=== PATIENT | female | born 1985 | race Caucasian/White ===

== ENCOUNTER → 2016-04-19 | Outpatient (CLI) | payer BC | LOC: OD 15:24 | PROVIDERS: ATTEND Obstetrics & Gynecology | DX: J06.9 Acute upper respiratory infection, unspecified (principal) | CPT/HCPCS: 87070; 87804; 87880 ==

== ENCOUNTER 2016-07-22 16:15 | Emergency (ER) | payer BC, MEDICAID ==
--- NOTE | 2016-07-23 17:49 | EKG REPORT ---
SEVERITY:- NORMAL ECG - SINUS RHYTHM : Confirmed by: Enedina Worley MD 23-Jul-2016 17:49:33
== END 2016-07-22 17:55 | disposition left against medical advice (07) ==
LOC: ER 16:15
DX: Z53.9 Procedure and treatment not carried out, unspecified reason (principal)
CPT/HCPCS: 93005; 93010

== ENCOUNTER 2016-07-24 18:09 | Outpatient (CLI) | payer BC, MEDICAID ==
[2016-07-24 19:23] LABS: APPEARANCE,URINE CLEAR; BILIRUBIN,URINE NEGATIVE (NEGATIVE); GLUCOSE, URINE NEGATIVE (NEGATIVE); KETONES,URINE NEGATIVE (NEGATIVE); LEUKOCYTE ESTERASE,URINE NEGATIVE (NEGATIVE); NITRITE,URINE NEGATIVE (NEGATIVE); PROTEIN,URINE NEGATIVE (NEGATIVE); URINE SPECIFIC GRAVITY 1.002; UROBILINOGEN,URINE NEGATIVE mg/dL (<2.0)
[2016-07-24 19:37] LABS: URINE BARBITURATES SCREEN NEGATIVE; URINE METHADONE SCREEN NEGATIVE; URINE OPIATES LOW NEGATIVE; URINE PHENCYCLIDINE SCREEN NEGATIVE
== END 2016-07-24 19:51 | disposition home or self-care (01) ==
LOC: LC 18:09
PROVIDERS: ATTEND Obstetrics & Gynecology
PROC: 4A1HXCZ Monitoring of Products of Conception, Cardiac Rate, External Approach (ICD-10-PCS; principal; 2016-07-24)
DX: O26.892 Other specified pregnancy related conditions, second trimester (principal); R10.9 Unspecified abdominal pain; Z3A.25 25 weeks gestation of pregnancy
CPT/HCPCS: 80307; 81001

== ENCOUNTER 2016-09-25 13:05 | Outpatient (CLI) | payer BC, MEDICAID ==
--- NOTE | 2016-09-25 14:16 | Non Stress Test Report ---
Non Stress Test Datetime Report Generated by CPN: 09/25/2016 14:16 DEMOGRAPHIC EGA NST: 34.2 INDICATION Indication for Study: Ordered by Provider MONITORING Monitor Explained: Monitor Explained; Test Explained; Patient Verbalized Understanding Time on Monitor: 09/25/2016 13:32 Time off Monitor: 09/25/2016 13:54 NST Duration: 22 NST INTERVENTIONS NST Interventions: PO Hydration; Reposition Patient Physician Notified NST: Dr. Chino BABY A: [id number] BABY A Movement : Present Contraction Frequency : 0 FHR Baseline : 135 Accelerations : 15X15 Decelerations : None Variability : Moderate 6-25bpm NST Review: Meets Criteria for Reactive NST NST Review and Verified By : Jose Pisano RN NST Results: Reactive NST REPORT Report Trigger: Send Report
[2016-09-25 14:53] LABS: APPEARANCE,URINE CLEAR; BILIRUBIN,URINE NEGATIVE (NEGATIVE); GLUCOSE, URINE NEGATIVE (NEGATIVE); KETONES,URINE NEGATIVE (NEGATIVE); LEUKOCYTE ESTERASE,URINE NEGATIVE (NEGATIVE); NITRITE,URINE NEGATIVE (NEGATIVE); PROTEIN,URINE NEGATIVE (NEGATIVE); URINE SPECIFIC GRAVITY 1.002; UROBILINOGEN,URINE NEGATIVE mg/dL (<2.0)
[2016-09-25 15:07] LABS: URINE BARBITURATES SCREEN NEGATIVE; URINE METHADONE SCREEN NEGATIVE; URINE OPIATES LOW NEGATIVE; URINE PHENCYCLIDINE SCREEN NEGATIVE
== END 2016-09-25 14:48 | disposition home or self-care (01) ==
LOC: LC 13:05
PROVIDERS: ATTEND Obstetrics & Gynecology
PROC: 4A1HXCZ Monitoring of Products of Conception, Cardiac Rate, External Approach (ICD-10-PCS; principal; 2016-09-25)
DX: Z34.93 Encounter for supervision of normal pregnancy, unspecified, third trimester (principal); Z36 Encounter for antenatal screening of mother; Z3A.34 34 weeks gestation of pregnancy
CPT/HCPCS: 59025; 80307; 81001

== ENCOUNTER 2016-10-06 10:01 | Emergency (ER) | payer BC, MEDICAID ==
[2016-10-06 11:12] LABS: ABSOLUTE EOSINOPHILS # (AUTO) 0.1 10^3/uL (0.0-0.6); ABSOLUTE LYMPHOCYTES (AUTO) 1.3 10^3/uL (0.5-4.7); ABSOLUTE MONOCYTES (AUTO) 0.5 10^3/uL (0.1-1.4); ABSOLUTE NEUT (AUTO) 5.2 10^3/uL (1.7-8.2); BASOPHILS % (AUTO) 0.3 % (0-2); EOSINOPHILS % (AUTO) 1.5 % (0-6); HEMATOCRIT 38.6 % (36.0-47.0); HEMOGLOBIN 13.8 g/dL (12.0-15.5); HGB HCT DIFFERENCE 2.8; LYMPHOCYTES % (AUTO) 18.4 % (13-45); MEAN CORPUSCULAR HEMOGLOBIN 32.3 pg (27.0-33.4); MEAN CORPUSCULAR HGB CONC 35.8 g/dL (32.0-36.0); MEAN CORPUSCULAR VOLUME 90 fl (80-97); MONOCYTES % (AUTO) 6.5 % (3-13); RED BLOOD COUNT 4.27 10^6/uL (3.72-5.28); RED CELL DISTRIBUTION WIDTH 13.1 % (11.5-14.0); SEGMENTED NEUTROPHILS % (AUTO) 73.3 % (42-78); WHITE BLOOD COUNT 7.1 10^3/uL (4.0-10.5)
[2016-10-06 11:14] LABS: AMORPHOUS SEDIMENT,URINE TRACE /HPF; APPEARANCE,URINE CLOUDY; BILIRUBIN,URINE NEGATIVE (NEGATIVE); GLUCOSE, URINE NEGATIVE (NEGATIVE); KETONES,URINE NEGATIVE (NEGATIVE); LEUKOCYTE ESTERASE,URINE LARGE (NEGATIVE); NITRITE,URINE NEGATIVE (NEGATIVE); PROTEIN,URINE NEGATIVE (NEGATIVE); URINE SPECIFIC GRAVITY 1.002; UROBILINOGEN,URINE NEGATIVE mg/dL (<2.0)
[2016-10-06 11:30] LABS: ALANINE AMINOTRANSFERASE 26 U/L (9-52); ALBUMIN 3.5 g/dL (3.5-5.0); ALKALINE PHOSPHATASE 139 U/L (38-126); ANION GAP 9 (5-19); ASPARTATE AMINO TRANSFERASE 24 U/L (14-36); BILIRUBIN,DIRECT 0.3 mg/dL (0.0-0.4); BILIRUBIN,TOTAL 0.4 mg/dL (0.2-1.3); BLOOD UREA NITROGEN 6 mg/dL (7-20); CALCIUM 9.5 mg/dL (8.4-10.2); CARBON DIOXIDE 21 mmol/L (22-30); CHLORIDE 107 mmol/L (98-107); CREATININE RESULT 0.59 mg/dL (0.52-1.25); GLUCOSE 81 mg/dL (75-110); POTASSIUM 4.1 mmol/L (3.6-5.0); SODIUM 137.4 mmol/L (137-145); TOTAL PROTEIN 6.2 g/dL (6.3-8.2)
--- NOTE | 2016-10-06 11:42 | ER Document Report ---
ED General - General Chief Complaint: Near Syncope Stated Complaint: POSSIBLE SYNCOPE Time Seen by Provider: 10/06/16 10:18 Mode of Arrival: Medic Information source: Patient Notes: 30-year-old female with a history of seizures/pseudoseizures, vasovagal syncope , 35 weeks . Patient brought in by EMS after a syncopal episode at home. Patient was texting with her mother at the time and stated to her mother that she "did not feel well". Patient states she passed out afterwards and this is typical of her "seizures". Patient has been on Lamictal for these in the past and is followed by Dr. Scherer but was taken off that medicine for the . Patient states this is her third seizure during the itself. Patient states she fell on her left side. She is concerned that she wants to the baby checked. She denies any fluid leakage or vaginal bleeding. She denies any abdominal pain at this time. She states she feels fine now. There is no postictal period. TRAVEL OUTSIDE OF THE [place] IN LAST 30 DAYS: No - HPI Onset: Just prior to arrival Onset/Duration: Gradual Quality of pain: Cramping Severity: Mild Pain Level: 1 Associated symptoms: denies: Chest pain, Fever, Shortness of breath Exacerbated by: Denies Relieved by: Denies Similar symptoms previously: Yes Recently seen / treated by doctor: Yes - Related Data Allergies/Adverse Reactions: astemizole [From Hismanal] Allergy (Verified 10/06/16 11:04) chlorpheniramine [From Naldecon] Allergy (Verified 10/06/16 11:04) phenylephrine HCl [From Naldecon] Allergy (Verified 10/06/16 11:04) phenylpropanolamine HCl [From Naldecon] Allergy (Verified 10/06/16 11:04) phenyltoloxamine [From Naldecon] Allergy (Verified 10/06/16 11:04) Home Medications: Current Home Medications Folic Acid 1 mg PO DAILY 10/06/16 [History] Past Medical History - General Information source: Patient - Social History Smoking Status: Never Smoker Cigarette use (# per day): No Chew tobacco use (# tins/day): No Frequency of alcohol use: None Drug Abuse: None Lives with: Family Family History: Reviewed & Not Pertinent, Other - abdominal and intracranial aneurysms. Patient has suicidal ideation: No Patient has homicidal ideation: No - Past Medical History Cardiac Medical History: Reports: Other - vaso-vagal Pulmonary Medical History: Reports: None EENT Medical History: Reports: None Neurological Medical History: Reports: Hx Migraine, Hx Seizures - Pseudoseizures Endocrine Medical History: Reports: None Renal/ Medical History: Reports: None. Denies: Hx Peritoneal Dialysis Malignancy Medical History: Reports: None GI Medical History: Reports: None Musculoskeltal Medical History: Reports None Skin Medical History: Reports None Psychiatric Medical History: Reports: Hx Depression Past Surgical History: Reports: Hx Cholecystectomy, Hx Oral Surgery, Hx Tonsillectomy - Immunizations Immunizations up to date: Yes Hx Diphtheria, Pertussis, Tetanus Vaccination: Yes Review of Systems - Review of Systems Constitutional: denies: Chills, Fever EENT: No symptoms reported Cardiovascular: No symptoms reported Respiratory: No symptoms reported Gastrointestinal: No symptoms reported Genitourinary: No symptoms reported Female Genitourinary: No symptoms reported Musculoskeletal: No symptoms reported Skin: No symptoms reported Hematologic/Lymphatic: No symptoms reported Neurological/Psychological: See HPI Physical Exam - Vital signs Vitals: Temp Pulse Resp BP Pulse Ox 97.6 F 95 18 135/98 H 97 10/06/16 10:05 10/06/16 10:05 10/06/16 10:05 10/06/16 10:05 10/06/16 10:05 Notes: Physical exam: GENERAL: 30-year-old female, alert and oriented 3, no acute distress. The patient's blood pressure is 135/98. (She denies any problems with her blood pressure in ). HEAD: Atraumatic, normocephalic. EYES: Pupils equal round and reactive to light, extraocular movements intact, sclera anicteric, conjunctiva are normal. ENT: TMs normal, nares patent, oropharynx clear without exudates. Moist mucous membranes. NECK: Normal range of motion, supple without lymphadenopathy or JVD. LUNGS: Breath sounds clear to auscultation bilaterally and equal. No wheezes rales or rhonchi. HEART: Regular rate and rhythm without murmurs, rubs or gallops. ABDOMEN: Consistent with 35 weeks , soft, normoactive bowel sounds. No tenderness to palpation. No guarding, no rebound. No masses appreciated. EXTREMITIES: Normal range of motion, no pitting or edema. No clubbing or cyanosis. NEUROLOGICAL: Cranial nerves II through XII grossly intact. Normal speech, normal gait. PSYCH: Normal mood, normal affect. SKIN: Warm, Dry, normal turgor, no rashes or lesions noted. Bedside ultrasound: Consistent with 35 weeks , heartbeat 133, no fluid in the hepatorenal recess or the splenorenal recess. Course - Re-evaluation Re-evalutation: 10/06/16 12:09 Note: Repeat blood pressure 121/83. Patient is doing fine. She has been having some contractions which have been regular. From a medical standpoint, the patient is stable for evaluation in labor and delivery. She did fall and states she hit her side so there should be some evaluation and monitoring. 10/06/16 12:14 The issues as follows: 1. Syncope/seizure: Patient did not have any postictal period. There has been no tongue biting or urinary incontinence. Her neurologic exam is intact. She does have a history of seizures/pseudoseizures and vasovagal episodes. Her EKG was normal and her electrolytes good. She is stable for follow-up. 2. blood pressure: Patient's initial blood pressure was 135/98. Repeat was 128 /81 but the diastolic has over the couple of times around 98. Patient has not complained of any headache, abdominal pain. She does not have any lower extremity edema and the urine does not show any protein. 3. Urine analysis: Did show some white cells and bacteria, but there is a significant amount of squamous epithelial cells. I will send a urine culture. Patient has not had any symptoms of a UTI. 4. heart tones 133. Patient being sent up to labor and delivery for monitoring. I discussed my findings, urine analysis, blood pressure with Dr. Hernandez who will follow-up with the patient in labor and delivery. 10/06/16 20:55 - Vital Signs Vital signs: Temp Pulse Resp BP Pulse Ox 98.1 F 95 18 123/86 H 99 10/06/16 12:16 10/06/16 10:05 10/06/16 12:01 10/06/16 12:16 10/06/16 12:01 - Laboratory Result Diagrams: 10/06/16 11:01 10/06/16 11:01 Laboratory results interpreted by me: 10/06/16 10/06/16 10:30 11:01 Carbon Dioxide 21 L BUN 6 L Alkaline Phosphatase 139 H Total Protein 6.2 L Beta HCG, Quant 4643.10 H Ur Leukocyte Esterase LARGE H - EKG Interpretation by Me Rate: Normal Rhythm: NSR - EKG shows normal sinus rhythm with a ventricular rate of 83, no acute ST-T wave changes, QTC 423, other intervals normal. Discharge - Discharge Clinical Impression: Vagal syncope Condition: Stable Disposition: HOME, SELF-CARE Referrals: EDMUNDO DOWD MD [Primary Care Provider] - Follow up as needed
[2016-10-06 12:17] VITALS: BP 123/86
--- NOTE | 2016-10-06 13:05 | EKG REPORT ---
SEVERITY:- NORMAL ECG - SINUS RHYTHM : Confirmed by: Alberto Carbajal MD 06-Oct-2016 13:04:38
== END 2016-10-06 12:19 | disposition home or self-care (01) ==
LOC: ER 10:01
DX: R55 Syncope and collapse (principal); R56.9 Unspecified convulsions; Z3A.35 35 weeks gestation of pregnancy; W19.XXXA Unspecified fall, initial encounter
CPT/HCPCS: 36415; 59025; 80053; 80307; 81001; 84702; 85025; 87086; 93005; 93010; 99284

== ENCOUNTER 2016-10-06 12:14 | Outpatient (CLI) | payer BC, MEDICAID ==
[2016-10-06 13:09] LABS: APPEARANCE,URINE SLIGHTLY-CLOUDY; BILIRUBIN,URINE NEGATIVE (NEGATIVE); GLUCOSE, URINE NEGATIVE (NEGATIVE); KETONES,URINE NEGATIVE (NEGATIVE); LEUKOCYTE ESTERASE,URINE SMALL (NEGATIVE); NITRITE,URINE NEGATIVE (NEGATIVE); PROTEIN,URINE NEGATIVE (NEGATIVE); URINE SPECIFIC GRAVITY 1.001; UROBILINOGEN,URINE NEGATIVE mg/dL (<2.0)
--- NOTE | 2016-10-06 13:12 | Non Stress Test Report ---
Non Stress Test Datetime Report Generated by CPN: 10/06/2016 13:12 DEMOGRAPHIC EGA NST: 35.6 INDICATION Indication for Study (NST) Other: Fall MONITORING Monitor Explained: Monitor Explained; Test Explained; Patient Verbalized Understanding Time on Monitor: 10/06/2016 12:39 NST INTERVENTIONS NST Interventions: None BABY A: [id number] BABY A Movement : Present Accelerations : 15X15 Decelerations : None Variability : Moderate 6-25bpm NST Review: Meets Criteria for Reactive NST NST Review and Verified By : D Bellavance RNC NST Results: Reactive NST REPORT Report Trigger: Send Report
[2016-10-06 13:29] LABS: URINE BARBITURATES SCREEN NEGATIVE; URINE METHADONE SCREEN NEGATIVE; URINE OPIATES LOW NEGATIVE; URINE PHENCYCLIDINE SCREEN NEGATIVE
== END 2016-10-06 16:18 | disposition home or self-care (01) ==
LOC: LC 12:14
PROVIDERS: ATTEND Obstetrics & Gynecology
PROC: 4A1HXCZ Monitoring of Products of Conception, Cardiac Rate, External Approach (ICD-10-PCS; principal; 2016-10-06)
DX: O47.03 False labor before 37 completed weeks of gestation, third trimester (principal); Z3A.35 35 weeks gestation of pregnancy; W19.XXXA Unspecified fall, initial encounter
CPT/HCPCS: 59025; 80307; 81001

== ENCOUNTER 2016-10-15 15:48 | Outpatient (CLI) | payer BC, MEDICAID ==
[2016-10-15 16:37] LABS: APPEARANCE,URINE CLEAR; BILIRUBIN,URINE NEGATIVE (NEGATIVE); GLUCOSE, URINE NEGATIVE (NEGATIVE); KETONES,URINE NEGATIVE (NEGATIVE); LEUKOCYTE ESTERASE,URINE NEGATIVE (NEGATIVE); NITRITE,URINE NEGATIVE (NEGATIVE); PROTEIN,URINE NEGATIVE (NEGATIVE); URINE SPECIFIC GRAVITY 1.003; UROBILINOGEN,URINE NEGATIVE mg/dL (<2.0)
--- NOTE | 2016-10-15 17:05 | Non Stress Test Report ---
Non Stress Test Datetime Report Generated by CPN: 10/15/2016 17:05 DEMOGRAPHIC EGA NST: 37.1 INDICATION Indication for Study: Other Indication for Study (NST) Other: labor check MONITORING Monitor Explained: Monitor Explained; Test Explained; Patient Verbalized Understanding Time on Monitor: 10/15/2016 16:15 Time off Monitor: 10/15/2016 17:03 NST Duration: 48 NST INTERVENTIONS NST Interventions: None Physician Notified NST: Dr. Chino BABY A: [id number] BABY A Movement : Present Contraction Frequency : irregular FHR Baseline : 120 Accelerations : 15X15 Decelerations : None Variability : Moderate 6-25bpm NST Review: Meets Criteria for Reactive NST NST Review and Verified By : Nathan Bryce, RN NST Results: Reactive NST REPORT Report Trigger: Send Report
[2016-10-15 17:08] LABS: URINE BARBITURATES SCREEN NEGATIVE; URINE METHADONE SCREEN NEGATIVE; URINE OPIATES LOW NEGATIVE; URINE PHENCYCLIDINE SCREEN NEGATIVE
== END 2016-10-15 17:42 | disposition home or self-care (01) ==
LOC: LC 15:48
PROVIDERS: ATTEND Obstetrics & Gynecology
DX: O47.1 False labor at or after 37 completed weeks of gestation (principal); Z3A.27 27 weeks gestation of pregnancy
CPT/HCPCS: 59025; 80307; 81005

== ENCOUNTER 2016-10-22 16:13 | Outpatient (CLI) | payer BC, MEDICAID ==
[2016-10-22 16:56] LABS: APPEARANCE,URINE SLIGHTLY-CLOUDY; BILIRUBIN,URINE NEGATIVE (NEGATIVE); GLUCOSE, URINE NEGATIVE (NEGATIVE); KETONES,URINE NEGATIVE (NEGATIVE); LEUKOCYTE ESTERASE,URINE SMALL (NEGATIVE); NITRITE,URINE NEGATIVE (NEGATIVE); PROTEIN,URINE NEGATIVE (NEGATIVE); URINE SPECIFIC GRAVITY 1.006; UROBILINOGEN,URINE NEGATIVE mg/dL (<2.0)
[2016-10-22 17:01] LABS: AMNISURE (ROM) NEGATIVE (NEGATIVE)
[2016-10-22 17:24] LABS: URINE BARBITURATES SCREEN NEGATIVE; URINE METHADONE SCREEN NEGATIVE; URINE OPIATES LOW NEGATIVE; URINE PHENCYCLIDINE SCREEN NEGATIVE
--- NOTE | 2016-10-22 17:25 | Non Stress Test Report ---
Non Stress Test Datetime Report Generated by CPN: 10/22/2016 17:25 DEMOGRAPHIC EGA NST: 38.1 INDICATION Indication for Study: Ordered by Provider Indication for Study (NST) Other: Labor Check MONITORING Monitor Explained: Monitor Explained; Test Explained; Patient Verbalized Understanding Time on Monitor: 10/22/2016 16:28 Time off Monitor: 10/22/2016 17:17 NST Duration: 49 NST INTERVENTIONS NST Interventions: PO Hydration; Reposition Patient Physician Notified NST: Dr. Chino BABY A: [id number] BABY A Movement : Present Contraction Frequency : 0 FHR Baseline : 125 Accelerations : 15X15 Variability : Moderate 6-25bpm NST Review: Meets Criteria for Reactive NST NST Review and Verified By : Tunde Reid NST Results: Reactive NST REPORT Report Trigger: Send Report (Annotations: Data stored by Milena on behalf of user)
== END 2016-10-22 17:30 | disposition home or self-care (01) ==
LOC: LC 16:13
PROVIDERS: ATTEND Obstetrics & Gynecology
PROC: 4A1HXCZ Monitoring of Products of Conception, Cardiac Rate, External Approach (ICD-10-PCS; principal; 2016-10-22)
DX: O47.1 False labor at or after 37 completed weeks of gestation (principal); Z3A.38 38 weeks gestation of pregnancy
CPT/HCPCS: 59025; 80307; 81005; 84112

== ENCOUNTER 2016-10-29 09:06 | Outpatient (CLI) | payer BC, MEDICAID ==
[2016-10-29 09:30] LABS: APPEARANCE,URINE CLOUDY; BILIRUBIN,URINE NEGATIVE (NEGATIVE); GLUCOSE, URINE 150 mg/dL (NEGATIVE); KETONES,URINE NEGATIVE (NEGATIVE); LEUKOCYTE ESTERASE,URINE MODERATE (NEGATIVE); NITRITE,URINE NEGATIVE (NEGATIVE); PROTEIN,URINE NEGATIVE (NEGATIVE); URINE SPECIFIC GRAVITY 1.002; UROBILINOGEN,URINE NEGATIVE mg/dL (<2.0)
[2016-10-29 09:45] LABS: URINE BARBITURATES SCREEN NEGATIVE; URINE METHADONE SCREEN NEGATIVE; URINE OPIATES LOW NEGATIVE; URINE PHENCYCLIDINE SCREEN NEGATIVE
[2016-10-29] MEDS ORDERED: HYDROXYZINE PAMOATE 50 MG CAPSULE PO ONE (09:49)
[2016-10-29] MEDS ORDERED: HYDROXYZINE PAMOATE 50 MG CAPSULE ONE (09:52)
== END 2016-10-29 10:18 | disposition home or self-care (01) ==
LOC: LC 09:06
PROVIDERS: ATTEND Specialist
PROC: 4A1HXCZ Monitoring of Products of Conception, Cardiac Rate, External Approach (ICD-10-PCS; principal; 2016-10-29)
DX: O47.1 False labor at or after 37 completed weeks of gestation (principal); Z3A.39 39 weeks gestation of pregnancy
CPT/HCPCS: 59025; 80307; 81005

== ENCOUNTER 2016-11-02 01:41 | Outpatient (CLI) | payer BC, MEDICAID ==
[2016-11-02 02:02] LABS: APPEARANCE,URINE CLEAR; BILIRUBIN,URINE NEGATIVE (NEGATIVE); GLUCOSE, URINE NEGATIVE (NEGATIVE); KETONES,URINE TRACE mg/dL (NEGATIVE); LEUKOCYTE ESTERASE,URINE TRACE (NEGATIVE); NITRITE,URINE NEGATIVE (NEGATIVE); PROTEIN,URINE NEGATIVE (NEGATIVE); URINE SPECIFIC GRAVITY 1.002; UROBILINOGEN,URINE NEGATIVE mg/dL (<2.0)
[2016-11-02 02:16] LABS: URINE BARBITURATES SCREEN NEGATIVE; URINE METHADONE SCREEN NEGATIVE; URINE OPIATES LOW NEGATIVE; URINE PHENCYCLIDINE SCREEN NEGATIVE
[2016-11-02] MEDS ORDERED: HYDROXYZINE PAMOATE 50 MG CAPSULE PO ONE ×2 (03:45→22:16)
[2016-11-02] MEDS ORDERED: HYDROXYZINE PAMOATE 50 MG CAPSULE ONE (03:48)
--- NOTE | 2016-11-02 03:59 | Non Stress Test Report ---
Non Stress Test Datetime Report Generated by CPN: 11/02/2016 03:59 DEMOGRAPHIC EGA NST: 39.5 EGA NST: 39.1 INDICATION Indication for Study: Ordered by Provider Indication for Study: Ordered by Provider MONITORING Monitor Explained: Monitor Explained; Test Explained; Patient Verbalized Understanding Monitor Explained: Monitor Explained; Test Explained; Patient Verbalized Understanding Time on Monitor: 11/02/2016 01:55 Time on Monitor: 10/29/2016 09:22 Time off Monitor: 11/02/2016 02:19 NST Duration: 24 NST INTERVENTIONS NST Interventions: None NST Interventions: None Physician Notified NST: Dr. Chino (Annotations: Data stored by [facility] on behalf of user) Physician Notified NST: Lisettesamy BABY A: [id number] BABY A Movement : Present Movement : Present Contraction Frequency : 2-6 FHR Baseline : 115 Accelerations : 15X15 Accelerations : 15X15 Decelerations : None Decelerations : None Variability : Moderate 6-25bpm Variability : Moderate 6-25bpm NST Review: Meets Criteria for Reactive NST NST Review: Meets Criteria for Reactive NST NST Review and Verified By : CÉSAR Ballard NST Review and Verified By : MARGARET Gregorio Results: Reactive NST Results: Reactive NST REPORT Report Trigger: Send Report
--- NOTE | 2016-11-02 22:04 | Non Stress Test Report ---
Non Stress Test Datetime Report Generated by CPN: 11/02/2016 22:04 DEMOGRAPHIC Test Number: 5 EGA NST: 39.5 INDICATION Indication for Study: Ordered by Provider MONITORING Monitor Explained: Monitor Explained; Test Explained; Patient Verbalized Understanding Time on Monitor: 11/02/2016 18:26 Time off Monitor: 11/02/2016 18:54 NST Duration: 28 NST INTERVENTIONS NST Interventions: PO Hydration; Reposition Patient Physician Notified NST: Dr. Neilsen BABY A: [id number] BABY A Movement : Present Contraction Frequency : irregular FHR Baseline : 125 Accelerations : 15X15 Decelerations : None Variability : Moderate 6-25bpm NST Review: Meets Criteria for Reactive NST NST Review and Verified By : MARGARET Dobbins Results: Reactive NST REPORT Report Trigger: Send Report
== END 2016-11-02 04:00 | disposition home or self-care (01) ==
LOC: LC 01:41
PROVIDERS: ATTEND Obstetrics & Gynecology
PROC: 4A1HXCZ Monitoring of Products of Conception, Cardiac Rate, External Approach (ICD-10-PCS; principal; 2016-11-02)
DX: O47.1 False labor at or after 37 completed weeks of gestation (principal); Z3A.39 39 weeks gestation of pregnancy
CPT/HCPCS: 59025; 80307; 81005; 82962

== ENCOUNTER 2016-11-02 18:07 | Outpatient (CLI) | payer BC, MEDICAID ==
[2016-11-02 18:55] LABS: APPEARANCE,URINE SLIGHTLY-CLOUDY; BILIRUBIN,URINE NEGATIVE (NEGATIVE); GLUCOSE, URINE NEGATIVE (NEGATIVE); KETONES,URINE 20 mg/dL (NEGATIVE); LEUKOCYTE ESTERASE,URINE SMALL (NEGATIVE); NITRITE,URINE NEGATIVE (NEGATIVE); PROTEIN,URINE NEGATIVE (NEGATIVE); URINE SPECIFIC GRAVITY 1.008; UROBILINOGEN,URINE NEGATIVE mg/dL (<2.0)
[2016-11-02 19:10] LABS: URINE BARBITURATES SCREEN NEGATIVE; URINE METHADONE SCREEN NEGATIVE; URINE OPIATES LOW NEGATIVE; URINE PHENCYCLIDINE SCREEN NEGATIVE
[2016-11-02] MEDS ORDERED: HYDROXYZINE PAMOATE 50 MG CAPSULE ONE (22:12)
== END 2016-11-02 22:18 | disposition home or self-care (01) ==
LOC: ER 18:07 → LC 22:18
PROVIDERS: ATTEND Specialist
PROC: 4A1HXCZ Monitoring of Products of Conception, Cardiac Rate, External Approach (ICD-10-PCS; principal; 2016-11-02)
DX: O47.1 False labor at or after 37 completed weeks of gestation (principal); Z3A.39 39 weeks gestation of pregnancy
CPT/HCPCS: 59025; 80307; 81005

== ENCOUNTER 2016-11-03 09:12 | Inpatient (IN) | payer BC, MEDICAID ==
[2016-11-03] MEDS ORDERED: OXYTOCIN 10 UNIT/ML VIAL ONE (09:26)
[2016-11-03] MEDS ORDERED: ZOLPIDEM TARTRATE 5 MG TABLET PO PRN (09:51)
[2016-11-03] MEDS ORDERED: BENZOCAINE/MENTHOL AEROSOL SPRAY 56 ML TOP PRN (09:51)
[2016-11-03] MEDS ORDERED: DIBUCAINE 1% OINTMENT 28 GM TP PRN (09:51)
[2016-11-03] MEDS ORDERED: MEASLES,MUMPS&RUBELLA VACC/PF 0.5 ML VIAL SUBCUT PRN (09:51)
[2016-11-03] MEDS ORDERED: DIPH/PERTUSS(ACELL)/TETANUS VAC/PF 0.5 ML SYR (>=10YO) IM PRN (09:51)
[2016-11-03] MEDS ORDERED: ACETAMINOPHEN WITH CODEINE #3 TABLET PO PRN ×2 (09:51)
[2016-11-03] MEDS ORDERED: OXYTOCIN/NORMAL SALINE 20 UNIT/1,000 ML RTUINJ IV PRN (09:51)
--- NOTE | 2016-11-03 11:20 | Delivery Summary ---
Del Sum A-C Datetime Report Generated by CPN: 11/03/2016 11:19 DELIVERY PERSONNEL DELIVERY PERSONNEL: [id number] MATERNAL INFORMATION Delivery Anesthesia: None Medications After Delivery: Pitocin 10 Units IM Meds After Delivery Comment: Pitocin 20 Units IM into R Thigh at 0920 Estimated Blood Loss (ml): 200 Maternal Complications: None Provider Comments: Home delivery, viable male infant, vagina and perineum inspected, superficial lacerations not bleeding, not repaired. Infant to nursery. Placenta inspected appears intact. IM pitocin, fundus firm @ the u. Routine pp care. ebl estimated. LABOR SUMMARY EDC: 11/04/2016 00:00 No. Babies in Womb: 1 Attempted: No Labor Anesthesia: None LABOR INFORMATION Reason for Induction: Not Applicable Onset of Labor: 11/03/2016 03:00 Oxytocin: N/A Group B Beta Strep: negative Steroids Given: None Reason Steroids Not Administered: Not Applicable STAGES OF LABOR Stage 3 hr: 0 Stage 3 min: 10 Total Time in Labor hr: 5 Total Time in Labor min: 25 VAGINAL DELIVERY Episiotomy: None Laceration Extension: N/A Laceration Type: None Laceration Repair: Not Applicable Laceration Repair Note: n/a Sponge Count Correct: N/A Sharps Count Correct: N/A BABY A INFORMATION Infant Delivery Date/Time: 11/03/2016 08:15 Method of Delivery: Vaginal Born in Route : Yes : N/A Forceps: N/A Vacuum Extraction: N/A Shoulder Dystocia : No PRESENTATION/POSITION BABY A Presentation: Cephalic Cephalic Presentation: Vertex PLACENTA INFORMATION BABY A Placenta Delivery Time : 11/03/2016 08:25 Placenta Method of Delivery: Spontaneous Placenta Status: Delivered SCORES BABY A Heart Rate 1 min: >100 bpm Resp Effort 1 min: Slow, Irregular Reflex Irritability 1 min: Cough or Sneeze or Pulls Away Muscle Tone 1 min: Active Motion Color 1 min: Blue/Pale Resuscitation Effort 1 min: Tactile Stimulation SCORE 1 MIN: 7 Heart Rate 5 min: >100 bpm Resp Effort 5 min: Good Cry Reflex Irritability 5 min: Cough or Sneeze or Pulls Away Muscle Tone 5 min: Active Motion Color 5 min: Body [place], Extremities Blue Resuscitation Effort 5 min: N/A SCORE 5 MIN: 9 Resuscitation Effort 10 min: N/A INFANT INFORMATION BABY A Gestational Age at Delivery: 39.6 Gestational Status: Full Term- 39- 40.6 Weeks Infant Outcome : Liveborn Infant Condition : Stable Infant Sex: Male IDENTIFICATION BABY A Infant Verification Date/Time: 11/03/2016 09:19 ID Band Number: [id number] Mother's Name Verified: Yes Infant RN Verifying Infant: K Ibrahima RNC/D Bellavance RNC WEIGHT/LENGTH BABY A Birthweight (gm): 2973 Infant Weight (lb): 6 Weight (oz): 9 Length (in): 21.00 Infant Length (cm): 53.34 CORD INFORMATION BABY A No. Cord Vessels: 3 Nuchal Cord : N/A Cord Blood Taken: Yes-For Eval (Mom's Blood Type - or O+) Suction: Mouth; Nose ASSESSMENT BABY A Physical Findings- Other: Circular skin lesion Left Wrist Respirations: Grunting; Intercostal Retractions; Sternal Retractions Skin to Skin: No Grade Tamper/ALS Called : Yes Care By: EMS BABY B INFORMATION : N/A SIGNATURES Assignment: Janet Disla MD Signature: with User ID: Juany : with User ID: Juany
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
[2016-11-03 11:52] LABS: ABSOLUTE LYMPHOCYTES (AUTO) 0.9 10^3/uL (0.5-4.7); ABSOLUTE MONOCYTES (AUTO) 0.9 10^3/uL (0.1-1.4); BASOPHILS % (AUTO) 0.1 % (0-2); HEMATOCRIT 40.6 % (36.0-47.0); HEMOGLOBIN 14.2 g/dL (12.0-15.5); LYMPHOCYTES % (AUTO) 5.1 % (13-45); MEAN CORPUSCULAR HEMOGLOBIN 31.8 pg (27.0-33.4); MEAN CORPUSCULAR HGB CONC 34.9 g/dL (32.0-36.0); MEAN CORPUSCULAR VOLUME 91 fl (80-97); RED BLOOD COUNT 4.46 10^6/uL (3.72-5.28); RED CELL DISTRIBUTION WIDTH 13.2 % (11.5-14.0); SEGMENTED NEUTROPHILS % (AUTO) 89.8 % (42-78); WHITE BLOOD COUNT 17.9 10^3/uL (4.0-10.5)
[2016-11-03] MEDS: FERROUS SULFATE 325 MG TABLET PO SCH ×2 (12:23→18:16)
[2016-11-03] MEDS: SENNOSIDES/DOCUSATE 8.6-50 MG 1 EACH TABLET PO SCH (12:24)
[2016-11-03] MEDS: DOCUSATE SODIUM 100 MG CAPSULE PO SCH ×2 (12:25→18:16)
[2016-11-03] MEDS: PRENATAL VITAMIN W-O CA NO5/FE FUMARATE/FA CAPSULE PO SCH (12:25)
[2016-11-03] MEDS: IBUPROFEN 800 MG TABLET PO SCH ×2 (13:44→21:18)
[2016-11-04] MEDS: IBUPROFEN 800 MG TABLET PO SCH ×3 (06:18→21:12)
[2016-11-04 08:02] LABS: HEMATOCRIT 37.4 % (36.0-47.0); HGB HCT DIFFERENCE 1.6; MEAN CORPUSCULAR HEMOGLOBIN 32.2 pg (27.0-33.4); MEAN CORPUSCULAR HGB CONC 34.8 g/dL (32.0-36.0); MEAN CORPUSCULAR VOLUME 93 fl (80-97); RED BLOOD COUNT 4.04 10^6/uL (3.72-5.28); RED CELL DISTRIBUTION WIDTH 13.6 % (11.5-14.0)
[2016-11-04] MEDS: SENNOSIDES/DOCUSATE 8.6-50 MG 1 EACH TABLET PO SCH (10:13)
[2016-11-04] MEDS: PRENATAL VITAMIN W-O CA NO5/FE FUMARATE/FA CAPSULE PO SCH (10:13)
[2016-11-04] MEDS: DOCUSATE SODIUM 100 MG CAPSULE PO SCH ×2 (10:13→18:26)
[2016-11-04] MEDS: FERROUS SULFATE 325 MG TABLET PO SCH ×2 (10:13→18:26)
--- NOTE | 2016-11-04 10:54 | PDOC PROGRESS REPORT ---
Subjective-OB Subjective: Post Delivery Day: 1 31 year old. Denies any needs at this time, lochia stable, pain well controlled , voiding without difficulty Physical Exam (OB) Vital Signs: Temp Pulse Resp BP Pulse Ox 97.7 F 88 16 127/75 H 99 11/04/16 08:09 11/04/16 08:09 11/04/16 08:09 11/04/16 08:09 11/04/16 08:09 Intake & Output 11/03/16 11/04/16 11/05/16 06:59 06:59 06:59 Intake Total 400 Balance 400 Weight 103.8 kg - PIH/Pre-Eclampsia Clonus: Negative - Lochia Lochia Amount: Scant < 10 ml Lochia Color: Rubra/Red - Abdomen Description: Tender, Soft Hernia Present: No Fundal Description: Firm, Midline Fundal Height: u/u - u/2 Objective-Diagnostic Laboratory: 11/04/16 06:59 11/03/16 11/03/16 11/04/16 11:22 11:22 06:59 WBC 17.9 H 12.0 H RBC 4.46 4.04 Hgb 14.2 13.0 Hct 40.6 37.4 MCV 91 93 MCH 31.8 32.2 MCHC 34.9 34.8 RDW 13.2 13.6 Plt Count 204 196 Seg Neutrophils % 89.8 H Lymphocytes % 5.1 L Monocytes % 5.0 Eosinophils % 0.0 Basophils % 0.1 Absolute Neutrophils 16.0 H Absolute Lymphocytes 0.9 Absolute Monocytes 0.9 Absolute Eosinophils 0.0 Absolute Basophils 0.0 Blood Type O POSITIVE Antibody Screen NEGATIVE Assessment and Plan(PN) - Assessment and Plan (1) Vaginal delivery Is this a current diagnosis for this admission?: Yes Plan: routine pp care - Time Spent with Patient Time with patient: Less than 15 minutes Critical Time spent with patient: Less than 15 minutes Medications reviewed and adjusted accordingly: Yes - Disposition Anticipated Discharge: Home Within: within 24 hours
[2016-11-05] MEDS: IBUPROFEN 800 MG TABLET PO SCH (06:07)
--- NOTE | 2016-11-05 10:14 | PDOC DISCHARGE SUMMARY ---
Final Diagnosis Discharge Date: 11/05/16 - Final Diagnosis (1) Vaginal delivery Is this a current diagnosis for this admission?: Yes (2) Hx of seizure disorder Is this a current diagnosis for this admission?: Yes (3) GDM, class A1 Is this a current diagnosis for this admission?: Yes (4) PTSD (post-traumatic stress disorder) Is this a current diagnosis for this admission?: Yes Discharge Data - Discharge Medication Home Medications: Vit/Iron Fumarate/FA [ Tablet] 1 each PO DAILY 09/25/16 Folic Acid 1 mg PO DAILY 10/06/16 Docusate Sodium [Colace 100 mg Capsule] 100 mg PO BID #30 capsule 11/05/16 Ferrous Sulfate [Feosol 325 mg Tablet] 325 mg PO BID #60 tablet 11/05/16 Ibuprofen [Motrin 800 mg Tablet] 800 mg PO Q8 #60 tablet 11/05/16 Gestational Age: 39.6 Reason(s) for Admission: Gestional Diabetes, Other Admission Note: home delivery Procedures: NST Intrapartum Procedure(s): Spontaneous Vaginal Delivery - Data Baby 1 Male at 1 minute: 7 at 5 minutes: 9 Home with Mother: No Complications: Yes - home delivery, pneumothorax - Diagnosis Test Laboratory: Temp Pulse Resp BP Pulse Ox 97.8 F 83 12 123/79 97 11/05/16 07:45 11/05/16 07:45 11/05/16 07:45 11/05/16 07:45 11/05/16 07:45 11/03/16 11/04/16 11:22 06:59 RBC 4.46 4.04 Hgb 14.2 13.0 Hct 40.6 37.4 - Discharge information/Instructions Discharge Activity: Activity As Tolerated, Pelvic Rest, No tub bath Discharge Diet: Regular Disposition: HOME, SELF-CARE Follow up with: [facility] in: 4, Weeks
[2016-11-05] MEDS: DOCUSATE SODIUM 100 MG CAPSULE PO SCH (10:31)
[2016-11-05] MEDS: PRENATAL VITAMIN W-O CA NO5/FE FUMARATE/FA CAPSULE PO SCH (10:31)
[2016-11-05] MEDS: FERROUS SULFATE 325 MG TABLET PO SCH (10:32)
[2016-11-05] MEDS: SENNOSIDES/DOCUSATE 8.6-50 MG 1 EACH TABLET PO SCH (10:32)
[2016-11-05 12:36] VITALS: BP 110/74
== END 2016-11-05 14:55 | disposition home or self-care (01) | DRG 775 ==
LOC: LR 09:12 → 2N 11:38
PROVIDERS: ADMIT Obstetrics & Gynecology; ATTEND Obstetrics & Gynecology
DX: O70.0 First degree perineal laceration during delivery (principal); O24.425 Gestational diabetes mellitus in childbirth, controlled by oral hypoglycemic drugs; O99.354 Diseases of the nervous system complicating childbirth; O99.344 Other mental disorders complicating childbirth; G40.909 Epilepsy, unspecified, not intractable, without status epilepticus; F43.10 Post-traumatic stress disorder, unspecified; Z3A.39 39 weeks gestation of pregnancy
CPT/HCPCS: 36415; 85025; 85027; 86592; 86850; 86900; 86901; 90707; J2590; J3490

== ENCOUNTER 2017-01-22 21:08 | Emergency (ER) | payer BC, MEDICAID ==
[2017-01-22] MEDS ORDERED: LEVETIRACETAM 500 MG/NACL-ISO 500 MG/100 ML RTUPB IV ONE (21:37)
--- NOTE | 2017-01-22 21:40 | ER Document Report ---
ED Seizure - General Stated Complaint: POSSIBLE SEIZURE Time Seen by Provider: 01/22/17 21:26 Notes: Patient is a 31-year-old female that comes by EMS for chief complaint of seizure. Patient has a seizure disorder, she previously was on medication but she has not been taking them by choice for the past 11 months, she had a child 2 months ago, last seizure was about 1 week ago. Her father is at bedside, he states he witnessed her having a seizure, she did not have a fall or head injury , he states she had a seizure that lasted for about a minute, this paused, she had another seizure that lasted about a minute, this paused, and she had what appeared to be a third seizure that lasted also for about 1 minute. Patient states she has a mild headache, she was found to be postictal by EMS. Patient denies any abnormal occurrences today including fever, vomiting, alcohol use. - Related Data Allergies/Adverse Reactions: astemizole [From Hismanal] Allergy (Verified 11/03/16 10:45) chlorpheniramine [From Naldecon] Allergy (Verified 11/03/16 10:45) phenylephrine HCl [From Naldecon] Allergy (Verified 11/03/16 10:45) phenylpropanolamine HCl [From Naldecon] Allergy (Verified 11/03/16 10:45) phenyltoloxamine [From Naldecon] Allergy (Verified 11/03/16 10:45) Past Medical History - General Information source: Patient - Social History Smoking Status: Never Smoker Frequency of alcohol use: None Drug Abuse: None Lives with: Family Family History: Reviewed & Not Pertinent, Other - abdominal and intracranial aneurysms. Neurological Medical History: Reports: Hx Migraine, Hx Seizures - Pseudoseizures Renal/ Medical History: Denies: Hx Peritoneal Dialysis Psychiatric Medical History: Reports: Hx Depression Past Surgical History: Reports: Hx Cholecystectomy, Hx Oral Surgery, Hx Tonsillectomy - Immunizations Immunizations up to date: Yes Hx Diphtheria, Pertussis, Tetanus Vaccination: Yes Review of Systems - Review of Systems Constitutional: No symptoms reported EENT: No symptoms reported Cardiovascular: No symptoms reported Respiratory: No symptoms reported Gastrointestinal: No symptoms reported Genitourinary: No symptoms reported Female Genitourinary: No symptoms reported Musculoskeletal: No symptoms reported Skin: No symptoms reported Hematologic/Lymphatic: No symptoms reported Neurological/Psychological: See HPI Physical Exam - Vital signs Vitals: Temp Pulse Resp BP Pulse Ox 97.9 F 78 18 104/63 98 01/22/17 21:26 01/22/17 21:26 01/22/17 21:26 01/22/17 21:26 01/22/17 21:26 Interpretation: Normal - General General appearance: Alert, Other - Patient appeared mildly drowsy but is otherwise cooperative, oriented, and conversational - HEENT Head: Normocephalic, Atraumatic Eyes: Normal Conjunctiva: Normal Extraocular movements intact: Yes Eyelashes: Normal Pupils: PERRL Mouth/Lips: Normal Mucous membranes: Normal Pharynx: Normal Neck: Normal - Respiratory Respiratory status: No respiratory distress Chest status: Nontender Breath sounds: Normal Chest palpation: Normal - Cardiovascular Rhythm: Regular. No: Tachycardia Heart sounds: Normal auscultation, S1 appreciated, S2 appreciated Murmur: No - Abdominal Inspection: Normal Distension: No distension Bowel sounds: Normal Tenderness: Nontender Organomegaly: No organomegaly - Back Back: Normal, Nontender - Extremities General upper extremity: Normal inspection, Nontender, Normal color, Normal ROM , Normal temperature General lower extremity: Normal inspection, Nontender, Normal color, Normal ROM , Normal temperature, Normal weight bearing. No: Jh's sign - Neurological Neuro grossly intact: Yes Cognition: Normal Orientation: AAOx4 [place] Coma Scale Eye Opening: Spontaneous [place] Coma Scale Verbal: Oriented [place] Coma Scale Motor: Obeys Commands [place] Coma Scale Total: 15 Speech: Normal Cranial nerves: Normal Cerebellar coordination: Normal Motor strength normal: LUE, RUE, LLE, RLE Additional motor exam normals: Equal physician anesthesiologist Sensory: Normal - Psychological Associated symptoms: Normal affect, Normal mood - Skin Skin Temperature: Warm Skin Moisture: Dry Skin Color: Normal Course - Re-evaluation Re-evalutation: Patient given Keppra on arrival, IV fluids. Initially she was slightly postictal, after monitoring headache resolved, she normalized, she has been monitored here for several hours with no repeated incident. CBC, chemistry, magnesium, alcohol, urinalysis are unremarkable. Patient with no injuries over her body. Family at bedside, patient is requesting to leave. Discussed with patient in detail. After discussion agreement was made to have patient discharged, restart her on her Lamictal which she was supposed to be taking, have her follow -up closely with her neurologist, and return for any concerning symptoms. Patient and family state understanding and agreement. Patient also will be given Diastat, this was discussed with family members and patient in detail, they state satisfaction and understanding. - Vital Signs Vital signs: Temp Pulse Resp BP Pulse Ox 97.9 F 78 12 124/77 97 01/22/17 21:26 01/22/17 21:26 01/23/17 01:00 01/22/17 22:16 01/23/17 01:00 - Laboratory Result Diagrams: 01/22/17 23:45 01/22/17 23:45 Discharge - Discharge Clinical Impression: Seizure, Hx of seizure disorder Condition: Stable Disposition: HOME, SELF-CARE Additional Instructions: Your workup does not show any concerning abnormalities. Please restart Lamictal and follow-up with your neurologist within the next 1-2 weeks for additional evaluation and management. Use the Diastat as needed as directed, return to the emergency department for any concerning or worsening symptoms including fever, repeat or prolonged seizures, or any other concerning symptoms. Prescriptions: Diazepam [Diastat Acudial] 1 each RC ASDIR PRN #1 kit PRN Reason: Lamotrigine [Lamictal] 25 mg PO ASDIR PRN #42 tablet PRN Reason:
[2017-01-22 23:59] LABS: ABSOLUTE EOSINOPHILS # (AUTO) 0.2 10^3/uL (0.0-0.6); ABSOLUTE LYMPHOCYTES (AUTO) 2.3 10^3/uL (0.5-4.7); ABSOLUTE MONOCYTES (AUTO) 0.5 10^3/uL (0.1-1.4); ABSOLUTE NEUT (AUTO) 3.8 10^3/uL (1.7-8.2); BASOPHILS % (AUTO) 0.7 % (0-2); EOSINOPHILS % (AUTO) 2.7 % (0-6); HEMATOCRIT 37.7 % (36.0-47.0); HEMOGLOBIN 13.4 g/dL (12.0-15.5); HGB HCT DIFFERENCE 2.5; LYMPHOCYTES % (AUTO) 33.9 % (13-45); MEAN CORPUSCULAR HEMOGLOBIN 31.9 pg (27.0-33.4); MEAN CORPUSCULAR HGB CONC 35.6 g/dL (32.0-36.0); MEAN CORPUSCULAR VOLUME 90 fl (80-97); MONOCYTES % (AUTO) 7.9 % (3-13); RED BLOOD COUNT 4.21 10^6/uL (3.72-5.28); RED CELL DISTRIBUTION WIDTH 12.8 % (11.5-14.0); SEGMENTED NEUTROPHILS % (AUTO) 54.8 % (42-78); WHITE BLOOD COUNT 6.8 10^3/uL (4.0-10.5)
[2017-01-23 00:16] LABS: ALANINE AMINOTRANSFERASE 39 U/L (9-52); ALBUMIN 4.1 g/dL (3.5-5.0); ALKALINE PHOSPHATASE 92 U/L (38-126); ANION GAP 11 (5-19); ASPARTATE AMINO TRANSFERASE 36 U/L (14-36); BILIRUBIN,DIRECT 0.4 mg/dL (0.0-0.4); BILIRUBIN,TOTAL 0.4 mg/dL (0.2-1.3); BLOOD UREA NITROGEN 13 mg/dL (7-20); CALCIUM 9.2 mg/dL (8.4-10.2); CARBON DIOXIDE 28 mmol/L (22-30); CHLORIDE 104 mmol/L (98-107); CREATININE RESULT 0.67 mg/dL (0.52-1.25); GLUCOSE 97 mg/dL (75-110); MAGNESIUM 2.2 mg/dL (1.6-2.3); POTASSIUM 3.9 mmol/L (3.6-5.0); SODIUM 142.8 mmol/L (137-145); TOTAL PROTEIN 6.9 g/dL (6.3-8.2)
[2017-01-23] MEDS ORDERED: NORMAL SALINE 1000 ML 1,000 ML IV ONE (00:19)
[2017-01-23 00:27] LABS: ALCOHOL < 10 mg/dL (NONE DETECTED)
[2017-01-23 01:18] LABS: APPEARANCE,URINE HAZY; BILIRUBIN,URINE NEGATIVE (NEGATIVE); GLUCOSE, URINE NEGATIVE (NEGATIVE); KETONES,URINE NEGATIVE (NEGATIVE); LEUKOCYTE ESTERASE,URINE NEGATIVE (NEGATIVE); NITRITE,URINE NEGATIVE (NEGATIVE); PROTEIN,URINE NEGATIVE (NEGATIVE); URINE SPECIFIC GRAVITY 1.015; UROBILINOGEN,URINE NEGATIVE mg/dL (<2.0)
[2017-01-23 02:10] VITALS: BP 124/77
== END 2017-01-23 02:10 | disposition home or self-care (01) ==
LOC: ER 21:08
DX: R56.9 Unspecified convulsions (principal); R51 Headache; Z90.49 Acquired absence of other specified parts of digestive tract
CPT/HCPCS: 99284; 96361; 96374; 36415; 80307; 83735; 85025; 81025; 80053; 81001; J7030; J1953

== ENCOUNTER 2017-03-16 17:34 | Emergency (ER) | payer BC ==
[2017-03-16 17:43] VITALS: BP 137/90
[2017-03-16] MEDS ORDERED: LIDOCAINE 5% (700 MG) TRANSDERMAL ADH..PATCH TP ONE (18:20)
[2017-03-16] MEDS ORDERED: IBUPROFEN 800 MG TABLET PO ONE (18:20)
[2017-03-16] MEDS ORDERED: METHOCARBAMOL 500 MG TABLET PO ONE (18:20)
--- NOTE | 2017-03-16 18:22 | ER Document Report ---
HPI - HPI Patient complains to provider of: neck pain Onset: Other - 4 days Onset/Duration: Persistent Quality of pain: Achy Pain Level: 3 Context: Patient presents complaining of left-sided neck pain for the past 4 days. Patient denies any injury. Patient states she just woke up and had the pain. Patient states pain radiates to the left side of her neck to the left upper extremity down to the level for wrist. Patient denies any headache fever or recent injury. Associated Symptoms: Other - Left-sided neck pain. denies: Fever, Headache Exacerbated by: Movement Relieved by: Denies Similar symptoms previously: No Recently seen / treated by doctor: No - ROS ROS below otherwise negative: Yes Systems Reviewed and Negative: Yes All other systems reviewed and negative - CONSTITUTIONAL Constitutional: DENIES: Fever, Chills - NEURO Neurology: DENIES: Headache, Weakness - MUSCULOSKELETAL Musculoskeletal: REPORTS: Extremity pain, Neck Pain. DENIES: Swelling - DERM Skin Color: Normal Skin Problems: None Past Medical History - General Information source: Patient - Social History Smoking Status: Never Smoker Frequency of alcohol use: None Drug Abuse: None Occupation: None Lives with: Family Family History: Reviewed & Not Pertinent, Other - abdominal and intracranial aneurysms. Neurological Medical History: Reports: Hx Migraine, Hx Seizures - Pseudoseizures Renal/ Medical History: Denies: Hx Peritoneal Dialysis Psychiatric Medical History: Reports: Hx Depression Past Surgical History: Reports: Hx Cholecystectomy, Hx Oral Surgery, Hx Tonsillectomy - Immunizations Immunizations up to date: Yes Hx Diphtheria, Pertussis, Tetanus Vaccination: Yes Vertical Provider Document - CONSTITUTIONAL Agree With Documented VS: Yes Exam Limitations: No Limitations General Appearance: WD/WN, No Apparent Distress - INFECTION CONTROL TRAVEL OUTSIDE OF THE [place] IN LAST 30 DAYS: No - HEENT HEENT: Atraumatic, Normal ENT Exam, Normocephalic - NECK Neck: Supple, Other - Left cervical paraspinal muscle tenderness - RESPIRATORY Respiratory: Breath Sounds Normal, No Respiratory Distress O2 Sat by Pulse Oximetry: 98 - CARDIOVASCULAR Cardiovascular: Regular Rate, Regular Rhythm, No Murmur Pulses: Normal: Radial - BACK Back: Abnormal Inspection - Left trapezius muscle tenderness. negative: CVA Tenderness-Right, CVA Tenderness-Left - MUSCULOSKELETAL/EXTREMETIES Musculoskeletal/Extremeties: MELISSA FROM Notes: Normal strength and muscle tone to bilateral upper extremities - NEURO Level of Consciousness: Awake, Alert, Appropriate Motor/Sensory: No Motor Deficit, No Sensory Deficit. negative: Weak Motor Strength RUE, Weak Motor Strength LUE - DERM Integumentary: Warm, Dry Course - Re-evaluation Re-evalutation: 03/16/17 18:19 Controlled substance database reviewed - Vital Signs Vital signs: Temp Pulse Resp BP Pulse Ox 98.5 F 95 14 137/90 H 98 03/16/17 17:38 03/16/17 17:38 03/16/17 17:38 03/16/17 17:38 03/16/17 17:38 Discharge - Discharge Clinical Impression: Trapezius muscle spasm, Radicular pain Condition: Stable Disposition: HOME, SELF-CARE Instructions: Family Physicians / Practices, Muscle Relaxers ([facility]), Muscle Strain ([facility]), Radiculopathy ([facility]) Additional Instructions: Return immediately for any new or worsening symptoms Followup with your primary care provider, call tomorrow to make a followup appointment Prescriptions: Methocarbamol [Robaxin 500 Mg Tablet] 500 mg PO QID PRN #20 tablet PRN Reason: Naproxen [Naprosyn 250 Nmg Tablet] 1 tab PO BID #14 tablet Referrals: [facility] [Provider Group] - Follow up as needed
== END 2017-03-16 18:39 | disposition home or self-care (01) ==
LOC: ER 17:34
DX: M62.838 Other muscle spasm (principal); M54.2 Cervicalgia; Z90.49 Acquired absence of other specified parts of digestive tract
CPT/HCPCS: 99283

== ENCOUNTER 2017-08-15 20:42 | Emergency (ER) | payer BC ==
--- NOTE | 2017-08-15 21:18 | RADIOLOGY REPORT (SQ) ---
EXAM DESCRIPTION: ANKLE LEFT COMPLETE COMPLETED DATE/TIME: 08/15/2017 9:10 pm REASON FOR STUDY: Pain s/p injury COMPARISON: None. NUMBER OF VIEWS: Three views. TECHNIQUE: AP, lateral, and oblique radiographic images acquired of the left ankle. LIMITATIONS: None. FINDINGS: MINERALIZATION: Normal. BONES: No acute fracture or dislocation. No worrisome bone lesions. JOINTS: No effusions. SOFT TISSUES: No soft tissue swelling. No foreign body. OTHER: No other significant finding. IMPRESSION: NEGATIVE STUDY OF THE LEFT ANKLE. NO RADIOGRAPHIC EVIDENCE OF ACUTE INJURY. TECHNICAL DOCUMENTATION: JOB ID: [id number] [employer]- All Rights Reserved Reading location - IP/workstation name: [email or web address]
[2017-08-15] MEDS ORDERED: IBUPROFEN 800 MG TABLET PO ONE (23:12)
--- NOTE | 2017-08-15 23:12 | ER Document Report ---
ED Extremity Problem, Lower - General Mode of Arrival: Wheelchair Information source: Patient TRAVEL OUTSIDE OF THE [place] IN LAST 30 DAYS: No <MELL HOWARD - Last Filed: 08/15/17 23:07> <RONNIE GRACIA - Last Filed: 08/16/17 02:29> - General Chief Complaint: Ankle Injury Stated Complaint: LT ANKLE PAIN Time Seen by Provider: 08/15/17 22:09 Notes: 31 y.o female who presents to the ED with LLE injury. Pt reports that she was walking, stepped on something wrong, her ankle rolled inward and she landed on her RT knee giving her an abrasion to her knee. Pt reports trying to walk after rolling her ankle and states that she felt a sharp pain to her ankle. Pt denies any other medical issues or injuries. (MELL HOWARD) - Related Data Allergies/Adverse Reactions: astemizole [From Hismanal] Allergy (Verified 03/16/17 17:36) chlorpheniramine [From Naldecon] Allergy (Verified 03/16/17 17:36) phenylephrine HCl [From Naldecon] Allergy (Verified 03/16/17 17:36) phenylpropanolamine HCl [From Naldecon] Allergy (Verified 03/16/17 17:36) phenyltoloxamine [From Naldecon] Allergy (Verified 03/16/17 17:36) Past Medical History - General Information source: Patient - Social History Smoking Status: Never Smoker Chew tobacco use (# tins/day): No Frequency of alcohol use: Rare Drug Abuse: None Family History: Reviewed & Not Pertinent, Other - abdominal and intracranial aneurysms. Patient has suicidal ideation: No Patient has homicidal ideation: No Neurological Medical History: Reports: Hx Migraine, Hx Seizures - Pseudoseizures Renal/ Medical History: Denies: Hx Peritoneal Dialysis Psychiatric Medical History: Reports: Hx Depression Past Surgical History: Reports: Hx Cholecystectomy, Hx Oral Surgery, Hx Tonsillectomy - Immunizations Immunizations up to date: Yes Hx Diphtheria, Pertussis, Tetanus Vaccination: Yes <MELL HOWARD - Last Filed: 08/15/17 23:07> Review of Systems - Review of Systems Constitutional: No symptoms reported EENT: No symptoms reported Cardiovascular: No symptoms reported Respiratory: No symptoms reported Gastrointestinal: No symptoms reported Genitourinary: No symptoms reported Female Genitourinary: No symptoms reported Musculoskeletal: See HPI, Other - Ankle pain Skin: See HPI, Other - abrasion to RT knee Hematologic/Lymphatic: No symptoms reported Neurological/Psychological: No symptoms reported -: Yes All other systems reviewed and negative <MELL HOWARD - Last Filed: 08/15/17 23:07> Physical Exam <MELL HOWARD - Last Filed: 08/15/17 23:07> <RONNIE GRACIA - Last Filed: 08/16/17 02:29> - Vital signs Vitals: Temp Pulse Resp BP Pulse Ox 98.9 F 85 20 138/83 H 97 08/15/17 21:14 08/15/17 21:14 08/15/17 21:14 08/15/17 21:14 08/15/17 21:14 - Notes Notes: Physical Exam: General: Alert, appears well. HEENT: Normocephalic. Atraumatic. PERRL. Extraocular movements intact. Oropharynx clear. Neck: Supple. Non-tender. Respiratory: No respiratory distress. Clear and equal breath sounds bilaterally. Cardiovascular: Regular rate and rhythm. Abdominal: Normal Inspection. Non-tender. No distension. Normal Bowel Sounds. Back: Non-tender. No deformity or step off. Extremities: Moves all four extremities. Upper extremities: Normal inspection. Normal ROM. Lower extremities: Tender to palpation to LT inferior malleolus. Abrasion to RT knee. Full ROM. Pulses intact throughout. Neurological: Normal cognition. AAOx3. Normal speech. Psychological: Normal affect. Normal Mood. Skin: Warm. Dry. Normal color. (MELL HOWARD) Course <MELL HOWARD - Last Filed: 08/15/17 23:07> - Diagnostic Test Radiology reviewed: Reports reviewed <RONNIE GRACIA - Last Filed: 08/16/17 02:29> - Re-evaluation Re-evalutation: Patient is a 31-year-old female who injured her ankle prior to arrival. No evidence for fracture. Patient will be placed in an ankle stirrup. She has crutches at home. Abrasions to her knee but no other injuries. Follow-up with PMD as needed. Understands agrees with plan. May take [id number] medications as needed for pain. Stable for discharge. (RONNIE GRACIA) - Vital Signs Vital signs: Temp Pulse Resp BP Pulse Ox 97.8 F 80 16 128/68 H 100 08/16/17 00:27 08/16/17 00:27 08/16/17 00:27 08/16/17 00:27 08/16/17 00:27 Procedures - Immobilization Left Ankle Pre-Proc Neuro Vasc Exam: Normal Immobilizer type: Ankle stirrup Performed by: PCT Post-Proc Neuro Vasc Exam: Normal Alignment checked and good: Yes <RONNIE GRACIA - Last Filed: 08/16/17 02:29> Discharge <MELL HOWARD - Last Filed: 08/15/17 23:07> <RONNIE GRACIA - Last Filed: 08/16/17 02:29> - Discharge Clinical Impression: Left ankle sprain Qualifiers: Encounter type: initial encounter Involved ligament of ankle: unspecified ligament Qualified Code(s): S93.402A - Sprain of unspecified ligament of left ankle, initial encounter Condition: Stable Disposition: HOME, SELF-CARE Instructions: Ankle Stirrup Splint ([facility]), Use of Crutches ([facility]), Ice Packs ([facility] ), Sprained Ankle ([facility]) Additional Instructions: Please follow-up with your doctor this week. Forms: Return to Work Scribe Attestation: 08/16/17 02:29 I personally performed the services described in the documentation, reviewed and edited the documentation which was dictated to the scribe in my presence, and it accurately records my words and actions. (RONNIE GRACIA) Scribe Documentation - Scribe Written by Padma:: Padma Ho 08/15/17 [id number] acting as scribe for :: José Miguel <MELL HOWARD - Last Filed: 08/15/17 23:07>
[2017-08-15] MEDS ORDERED: HYDROCODONE/ACETAMINOPHEN 5-325 MG (6 TAB/ER DISP) PO PRN (23:13)
[2017-08-16 00:30] VITALS: BP 128/68
== END 2017-08-16 00:27 | disposition home or self-care (01) ==
LOC: ER 20:42
PROC: 2W3RX1Z Immobilization of Left Lower Leg using Splint (ICD-10-PCS; principal; 2017-08-15)
DX: S93.402A Sprain of unspecified ligament of left ankle, initial encounter (principal); S80.211A Abrasion, right knee, initial encounter; X50.0XXA Overexertion from strenuous movement or load, initial encounter; Z90.49 Acquired absence of other specified parts of digestive tract
CPT/HCPCS: 99283; 73610; L1902

== ENCOUNTER 2018-05-13 20:04 | Emergency (ER) | payer BC ==
--- NOTE | 2018-05-13 20:53 | ER Document Report ---
HPI - HPI Time Seen by Provider: 05/13/18 20:41 Pain Level: Denies Notes: Patient is a 32-year-old female with no significant past medical history who presents to the emergency department complaining of occasional dry nonproductive cough and an occasional sore throat over the last couple weeks. Patient states that she feels well currently. She has been eating and drinking without difficulty. She is urinating normally and having normal bowel movements. Patient states that her symptoms are not every day. She is not been using any medicines for her symptoms. She has no other concerns or complaints. Denies any headache, fever, neck pain, URI, chest pain, palpitations, syncope, shortness of breath, wheeze, dyspnea, abdominal pain, nausea/vomiting/diarrhea, urinary retention, dysuria, hematuria, or rash. - ROS Systems Reviewed and Negative: Yes All other systems reviewed and negative - CONSTITUTIONAL Constitutional: DENIES: Fever, Chills - EENT EENT: REPORTS: Sore Throat - NEURO Neurology: DENIES: Headache - REPRODUCTIVE Reproductive: DENIES: : Past Medical History - Social History Smoking Status: Never Smoker Family History: Reviewed & Not Pertinent, Other - abdominal and intracranial aneurysms. Patient has suicidal ideation: No Patient has homicidal ideation: No Neurological Medical History: Reports: Hx Migraine, Hx Seizures - Pseudoseizures Renal/ Medical History: Denies: Hx Peritoneal Dialysis Psychiatric Medical History: Reports: Hx Depression Past Surgical History: Reports: Hx Cholecystectomy, Hx Oral Surgery, Hx Tonsillectomy - Immunizations Immunizations up to date: Yes Hx Diphtheria, Pertussis, Tetanus Vaccination: Yes Vertical Provider Document - CONSTITUTIONAL Agree With Documented VS: Yes Notes: PHYSICAL EXAMINATION: GENERAL: Well-appearing, well-nourished and in no acute distress. A&Ox4. Answers questions appropriately. Moves comfortably w/o notable distress HEAD: Atraumatic, normocephalic. EYES: Pupils equal round and reactive to light, extraocular movements intact, sclera anicteric, conjunctiva are normal. ENT: EAC clear b/l. TM's intact b/l without erythema, fluid, or perforation. Nares patent and without discharge. oropharynx no erythema without exudates. Tonsils absent. No palatine shift. Uvula midline. No tongue protrusion. No drooling, hoarseness, or airway compromise. Moist mucous membranes. No sinus tenderness. NECK: Normal range of motion, supple without lymphadenopathy. No rigidi ty/meningismus. LUNGS: Breath sounds clear to auscultation bilaterally and equal. No wheezes rales or rhonchi. No retractions HEART: Regular rate and rhythm without murmurs, rubs, gallops. ABDOMEN: Soft, nontender, nondistended abdomen. No guarding, no rebound. Normal bowel sounds present. No CVA tenderness bilaterally. NEUROLOGICAL: Normal speech, normal gait. PSYCH: Normal mood, normal affect. SKIN: Warm, Dry, normal turgor, no rashes or lesions noted. - INFECTION CONTROL TRAVEL OUTSIDE OF THE [place] IN LAST 30 DAYS: No Course - Re-evaluation Re-evalutation: 05/13/18 20:51 Patient is an afebrile, well-hydrated, 32-year-old female who presents to the ED with acute URI, suspect viral. Vitals are acceptable. PE is otherwise unremarkable. No labs or imaging warranted at this time based on H&P. Patient has no significant cardiopulmonary or immunocompromised medical conditions. Patient's lungs are clear to auscultation bilaterally without tachycardia, hypoxia, or tachypnea. Patient is tolerating p.o. without any difficulties. Low suspicion for any meningitis, sepsis, peritonsillar/pharyngeal abscess, respiratory compromise, severe dehydration, or other emergent systemic condition at this time. Patient is aware this condition can change from initial presenta tion and she needs to monitor symptoms closely. Conservative measures otherwise for symptoms. Recheck with your PCM in 3-5 days. Return to the ED with any worsening/concerning symptoms otherwise as reviewed in discharge. Patient is in agreement. Discharge - Discharge Clinical Impression: Acute URI Condition: Stable Disposition: HOME, SELF-CARE Instructions: Upper Respiratory Illness ([facility]) Additional Instructions: Maintain adequate fluid intake tylenol/ibuprofen as needed over the counter cold medication as needed for symptoms Humidified air may help Wash your hands regularly Wear a mask when coughing F/u: with your PCM in 3-5 days for a recheck Return to the ED with any fever, worsening pain, chest pain, palpitations, syncope, worsening BECKER, neck pain/stiffness, shortness of breath, wheezing, drooling, trouble swallowing/breathing, abdominal pain, n/v/d, rash, or worsening/concerning symptoms otherwise. Forms: Elevated Blood Pressure Referrals: [facility] [Provider Group] - Follow up as needed [facility] [Provider Group] - Follow up as needed
[2018-05-13 20:55] VITALS: BP 147/95
== END 2018-05-13 21:07 | disposition home or self-care (01) ==
LOC: ER 20:04
DX: J06.9 Acute upper respiratory infection, unspecified (principal); Z90.49 Acquired absence of other specified parts of digestive tract
CPT/HCPCS: 99283

== ENCOUNTER 2018-07-26 16:45 | Emergency (ER) | payer BC ==
[2018-07-26] MEDS ORDERED: NORMAL SALINE 1000 ML 1,000 ML IV ONE (18:33)
[2018-07-26] MEDS ORDERED: DIPHENHYDRAMINE HCL 50 MG/ML VIAL IV ONE (18:34)
[2018-07-26] MEDS ORDERED: ONDANSETRON HCL INJ/PF 4 MG/2 ML SDV IV ONE (18:34)
--- NOTE | 2018-07-26 18:38 | ER Document Report ---
ED Medical Screen (RME) - General Chief Complaint: Dizziness Stated Complaint: LIGHT HEADED/DIZZY Time Seen by Provider: 07/26/18 18:33 Primary Care Provider: SALENA VERA MD [Primary Care Provider] - Follow up as needed Mode of Arrival: Ambulatory Information source: Patient Notes: Patient presents complaining of lightheadedness and feeling off balance. Patie nt denies any headache nausea or vomiting. Patient denies any chest pain back pain or abdominal pain. Patient denies any concerns about . I have greeted and performed a rapid initial assessment of this patient. A comprehensive ED assessment and evaluation of the patient, analysis of test results and completion of the medical decision making process will be conducted by additional ED providers. TRAVEL OUTSIDE OF THE [place] IN LAST 30 DAYS: No - Related Data Allergies/Adverse Reactions: astemizole [From Hismanal] Allergy (Verified 07/26/18 18:22) chlorpheniramine [From Naldecon] Allergy (Verified 07/26/18 18:22) phenylephrine HCl [From Naldecon] Allergy (Verified 07/26/18 18:22) phenylpropanolamine HCl [From Naldecon] Allergy (Verified 07/26/18 18:22) phenyltoloxamine [From Naldecon] Allergy (Verified 07/26/18 18:22) Past Medical History - Social History Chew tobacco use (# tins/day): No Drug Abuse: None Neurological Medical History: Reports: Hx Migraine, Hx Seizures - Pseudoseizures Renal/ Medical History: Denies: Hx Peritoneal Dialysis Psychiatric Medical History: Reports: Hx Depression Past Surgical History: Reports: Hx Cholecystectomy, Hx Oral Surgery, Hx Tonsillectomy - Immunizations Immunizations up to date: Yes Hx Diphtheria, Pertussis, Tetanus Vaccination: Yes Physical Exam - Vital signs Vitals: Temp Pulse Resp BP Pulse Ox 98.1 F 92 16 136/89 H 97 07/26/18 16:51 07/26/18 16:51 07/26/18 16:51 07/26/18 16:51 07/26/18 16:51 - General General appearance: Appears well, Alert In distress: None - Cardiovascular Rhythm: Regular Heart sounds: S1 appreciated, S2 appreciated Course - Vital Signs Vital signs: Temp Pulse Resp BP Pulse Ox 98.1 F 92 16 136/89 H 97 07/26/18 16:51 07/26/18 16:51 07/26/18 16:51 07/26/18 16:51 07/26/18 16:51 Doctor's Discharge - Discharge Referrals: SALENA VERA MD [Primary Care Provider] - Follow up as needed
[2018-07-26 19:32] LABS: ABSOLUTE EOSINOPHILS # (AUTO) 0.2 10^3/uL (0.0-0.6); ABSOLUTE LYMPHOCYTES (AUTO) 1.9 10^3/uL (0.5-4.7); ABSOLUTE MONOCYTES (AUTO) 0.5 10^3/uL (0.1-1.4); ABSOLUTE NEUT (AUTO) 4.5 10^3/uL (1.7-8.2); BASOPHILS % (AUTO) 0.5 % (0-2); EOSINOPHILS % (AUTO) 2.7 % (0-6); HEMATOCRIT 40.9 % (36.0-47.0); HEMOGLOBIN 14.1 g/dL (12.0-15.5); LYMPHOCYTES % (AUTO) 26.8 % (13-45); MEAN CORPUSCULAR HEMOGLOBIN 30.7 pg (27.0-33.4); MEAN CORPUSCULAR HGB CONC 34.6 g/dL (32.0-36.0); MEAN CORPUSCULAR VOLUME 89 fl (80-97); MONOCYTES % (AUTO) 6.7 % (3-13); PLATELET COUNT 261 10^3/uL (150-450); RED CELL DISTRIBUTION WIDTH 13.1 % (11.5-14.0); SEGMENTED NEUTROPHILS % (AUTO) 63.3 % (42-78); TOTAL CELLS COUNTED % (AUTO) 100 %; WHITE BLOOD COUNT 7.2 10^3/uL (4.0-10.5)
[2018-07-26 19:38] LABS: APPEARANCE,URINE CLOUDY; BILIRUBIN,URINE NEGATIVE (NEGATIVE); COLOR,URINE YELLOW; GLUCOSE, URINE NEGATIVE (NEGATIVE); KETONES,URINE NEGATIVE (NEGATIVE); LEUKOCYTE ESTERASE,URINE SMALL (NEGATIVE); NITRITE,URINE NEGATIVE (NEGATIVE); PROTEIN,URINE NEGATIVE (NEGATIVE); URINE SPECIFIC GRAVITY 1.017; UROBILINOGEN,URINE NEGATIVE mg/dL (<2.0)
[2018-07-26 19:53] LABS: ALANINE AMINOTRANSFERASE 31 U/L (9-52); ALBUMIN 4.5 g/dL (3.5-5.0); ALKALINE PHOSPHATASE 82 U/L (38-126); ANION GAP 10 (5-19); ASPARTATE AMINO TRANSFERASE 29 U/L (14-36); BILIRUBIN,DIRECT 0.3 mg/dL (0.0-0.4); BILIRUBIN,TOTAL 0.5 mg/dL (0.2-1.3); BLOOD UREA NITROGEN 13 mg/dL (7-20); CALCIUM 9.8 mg/dL (8.4-10.2); CARBON DIOXIDE 29 mmol/L (22-30); CHLORIDE 103 mmol/L (98-107); GLUCOSE 89 mg/dL (75-110); POTASSIUM 4.3 mmol/L (3.6-5.0); TOTAL PROTEIN 7.9 g/dL (6.3-8.2)
[2018-07-26 21:33] VITALS: BP 128/77
[2018-07-26] MEDS ORDERED: MECLIZINE HCL 25 MG TABLET PO ONE (21:40)
[2018-07-26] MEDS ORDERED: DEXAMETHASONE SOD PHOS INJ 10 MG/1 ML VIAL IV ONE (21:40)
--- NOTE | 2018-07-26 22:38 | ER Document Report ---
ED Dizziness/Weakness - General Chief Complaint: Dizziness Stated Complaint: LIGHT HEADED/DIZZY Time Seen by Provider: 07/26/18 18:33 Primary Care Provider: SALENA VERA MD [Primary Care Provider] - Follow up as needed Mode of Arrival: Ambulatory Notes: Patient is a 32-year-old female comes emergency room complaining of dizziness since she woke up. Patient states that she is also been somewhat lightheaded she denies the room spinning but does state that she feels off balance. She s tates even when she would lay down with her son she did not feel better when she woke up. Patient denies any history of hypertension diabetes her last menstrual. Was on July 04. Blood pressure on my examination is 127/72 on the right arm. Patient's EKG shows normal sinus rhythm without denies having a cold recently but states this was kind like sudden onset. No family history of any kind of brain tumors or headaches and patient does not have a head currently. She has had nausea but no vomiting. TRAVEL OUTSIDE OF THE [place] IN LAST 30 DAYS: No - HPI Patient complains to provider of: Dizziness, Vertigo, Weakness Onset: This morning Onset/Duration: Sudden, Persistent Quality of pain: No pain Severity: Moderate Pain Level: 3 Associated symptoms: Dizzy, Vertigo. denies: Headache, Hearing loss, Recent fall, Recent trauma, Ringing/roaring in ear, Short of breath Exacerbated by: Change in position, Movement of head Baseline gait: Walks w/o assistance - Related Data Allergies/Adverse Reactions: astemizole [From Hismanal] Allergy (Verified 07/26/18 18:22) chlorpheniramine [From Naldecon] Allergy (Verified 07/26/18 18:22) phenylephrine HCl [From Naldecon] Allergy (Verified 07/26/18 18:22) phenylpropanolamine HCl [From Naldecon] Allergy (Verified 07/26/18 18:22) phenyltoloxamine [From Naldecon] Allergy (Verified 07/26/18 18:22) Past Medical History - General Information source: Patient, Relative - Social History Smoking Status: Never Smoker Cigarette use (# per day): No Chew tobacco use (# tins/day): No Smoking Education Provided: No Drug Abuse: None Family History: Reviewed & Not Pertinent, Other - abdominal and intracranial aneurysms. Patient has suicidal ideation: No Patient has homicidal ideation: No Neurological Medical History: Reports: Hx Migraine, Hx Seizures - Pseudoseizures Renal/ Medical History: Denies: Hx Peritoneal Dialysis Psychiatric Medical History: Reports: Hx Depression Past Surgical History: Reports: Hx Cholecystectomy, Hx Oral Surgery, Hx Tonsillectomy - Immunizations Immunizations up to date: Yes Hx Diphtheria, Pertussis, Tetanus Vaccination: Yes Review of Systems - Review of Systems Constitutional: No symptoms reported EENT: No symptoms reported Cardiovascular: No symptoms reported Respiratory: No symptoms reported Gastrointestinal: No symptoms reported Genitourinary: No symptoms reported Female Genitourinary: No symptoms reported Musculoskeletal: No symptoms reported Skin: No symptoms reported Hematologic/Lymphatic: No symptoms reported Neurological/Psychological: See HPI, Weakness, Other - Dizziness off balance -: Yes All other systems reviewed and negative Physical Exam - Vital signs Vitals: Temp Pulse Resp BP Pulse Ox 98.1 F 92 16 136/89 H 97 07/26/18 16:51 07/26/18 16:51 07/26/18 16:51 07/26/18 16:51 07/26/18 16:51 Interpretation: Hypertensive - Notes Notes: PHYSICAL EXAMINATION: GENERAL: Well-appearing, well-nourished and in no acute distress. HEAD: Atraumatic, normocephalic. EYES: patient was laid down on her back with her head extended off the gurney resting in my hands. I applied my thumbs to her ears and rotator to her head the left right and up all the time having her watch my nose. Each time I turn patient's head to the right or left her eyes would reach max and she would have fasciculation noted. The fasciculation is horizontal fasciculation or nystagmus. I then have patient set up after the rotation of her head and she got excessively dizzy and leaning towards the right. Patient also became nauseated. ENT: Nares patent, oropharynx clear without exudates. Moist mucous membranes. NECK: Normal range of motion, supple without lymphadenopathy LUNGS: Breath sounds clear to auscultation bilaterally and equal. No wheezes rales or rhonchi. HEART: Regular rate and rhythm without murmurs ABDOMEN: Soft, nontender, nondistended abdomen. No guarding, no rebound. No masses appreciated. Female : deferred Musculoskeletal: Normal range of motion, no pitting or edema. No cyanosis. NEUROLOGICAL: Cranial nerves grossly intact. Normal speech. Normal sensory, motor exams PSYCH: Normal mood, normal affect. SKIN: Warm, Dry, normal turgor, no rashes or lesions noted. Course - Re-evaluation Re-evalutation: 07/26/18 22:38 Given patient's reaction with the positive head turn and having horizontal fasciculation i.e. nystagmus believe patient has a minimal all in her ear/labyrinthitis versus a borderline vertigo. I am going to be treating patients with a steroid taper, Valium for sleep at night and meclizine. I did not elect to do a CT of the head because of her presentation and the labs being normal no history and no neurologic deficits. - Vital Signs Vital signs: Temp Pulse Resp BP Pulse Ox 98.1 F 77 18 128/77 H 100 07/26/18 21:54 07/26/18 21:54 07/26/18 21:54 07/26/18 21:33 07/26/18 21:54 - Laboratory Result Diagrams: 07/26/18 18:50 07/26/18 18:50 Laboratory results interpreted by me: 07/26/18 18:50 Ur Leukocyte Esterase SMALL H Discharge - Discharge Clinical Impression: Labyrinthitis of both ears, Vertigo Condition: Stable Disposition: HOME, SELF-CARE Instructions: Dizziness ([facility]), Vertigo ([facility]), Labyrinthitis ([facility]) Additional Instructions: Home and rest. Medication as prescribed. As we discussed I believe this is a form of vertigo/inner ear problem. I am placing you on 3 things that should alleviate her help manage this particular type of presentation. 1 of been placed on steroids to help reduce inflammation in the inner ear area to I am going to put you on Valium for sleep at night which will allow you to relax. And 3 I went to put you on meclizine 3 times a day for the next 10 days. I need to warn you that he should not be driving until 1 week after the symptoms are gone off of medications. This is highly responsible for you to take action and not to drive and not to work at [employer] until that time. Should you have any other concerns or problems I highly suggest that you follow-up relatively soon with your primary care provider or return to ER for a recheck if symptoms get out of hand and if you are having more difficulty with nausea vomiting and/or dizziness. Also return if for any reason the presentation changes and your blood pressure elevates always come back for recheck. Prescriptions: Diazepam [Valium] 5 mg PO HSP PRN #10 tablet PRN Reason: Meclizine HCl [Antivert 25 mg Tablet] 25 mg PO TID #30 tablet Prednisone 10 mg PO ASDIR 6 Days #1 tab.ds.pk Referrals: SALENA VERA MD [Primary Care Provider] - Follow up as needed
--- NOTE | 2018-07-27 10:57 | EKG REPORT ---
SEVERITY:- NORMAL ECG - SINUS RHYTHM : Confirmed by: Jackeline Gaspar 27-Jul-2018 10:56:12
== END 2018-07-26 22:55 | disposition home or self-care (01) ==
LOC: ER 16:45
DX: H83.03 Labyrinthitis, bilateral (principal); R42 Dizziness and giddiness
CPT/HCPCS: 93005; 99284; 96361; 96374; 96375; 36415; 84703; 85025; 80053; 81001; 93010; J1200; J2405; J7030; J1100

== ENCOUNTER 2018-08-29 19:00 | Emergency (ER) | payer BC ==
[2018-08-29] MEDS ORDERED: CYCLOBENZAPRINE HCL 10 MG TABLET PO ONE (22:25)
[2018-08-29] MEDS ORDERED: KETOROLAC TROMETHAMINE 60 MG/2 ML SDV IM ONE (22:25)
--- NOTE | 2018-08-29 22:29 | ER Document Report ---
HPI - HPI Patient complains to provider of: back pain Time Seen by Provider: 08/29/18 22:25 Pain Level: 5 Context: Patient is a morbidly obese 32-year-old female presents to the emergency department for chronic back pain. Patient states she has had this chronic back pain for the last 2 years. States she was told that she has scoliosis and she also has sciatica bilaterally. Patient states she has been taking [id number] Tylenol and Motrin with no relief. Patient's denying any loss of bowel or bladder, urinary retention. She is denying any numbness or tingling in any extremity. When I ask why the patient decided to come to the emergency room tonight after 2 years of pain patient smiles and says "I figured I needed it checked out." Patient is denying any follow-up with orthopedics. Past medical history: Pseudoseizures Medications: Currently none Allergies: Sudafed, Lidoderm patches - REPRODUCTIVE Reproductive: DENIES: : Past Medical History - General Information source: Patient - Social History Smoking Status: Unknown if Ever Smoked Family History: Reviewed & Not Pertinent, Other - abdominal and intracranial aneurysms. Neurological Medical History: Reports: Hx Migraine, Hx Seizures - Pseudoseizures Renal/ Medical History: Denies: Hx Peritoneal Dialysis Psychiatric Medical History: Reports: Hx Depression Past Surgical History: Reports: Hx Cholecystectomy, Hx Oral Surgery, Hx Tonsillectomy - Immunizations Immunizations up to date: Yes Hx Diphtheria, Pertussis, Tetanus Vaccination: Yes Vertical Provider Document - CONSTITUTIONAL Agree With Documented VS: Yes Notes: GENERAL: Alert, interacts well. No acute distress. HEAD: Normocephalic, atraumatic. EYES: Pupils equal, round, and reactive to light. Extraocular movements intact. ENT: Oral mucosa moist, tongue midline. NECK: Full range of motion. Supple. Trachea midline. LUNGS: Clear to auscultation bilaterally, no wheezes, rales, or rhonchi. No respiratory distress. HEART: Regular rate and rhythm. No murmur ABDOMEN: Soft, non-tender. Non-distended. Bowel sounds present in all 4 quadrants. EXTREMITIES: Moves all 4 extremities spontaneously. No edema, normal radial and dorsalis pedis pulses bilaterally. No cyanosis. 5 out of 5 strength of lower extremities. BACK: no cervical, thoracic, lumbar midline tenderness. No saddle anesthesia, normal distal neurovascular exam. Generalized lumbar paraspinal tenderness note d bilaterally radiating into bilateral buttocks. NEUROLOGICAL: Alert and oriented x3. Normal speech. cranial nerves II through XII grossly intact PSYCH: Normal affect, normal mood. SKIN: Warm, dry, normal turgor. No rashes or lesions noted. - INFECTION CONTROL TRAVEL OUTSIDE OF THE [place] IN LAST 30 DAYS: No Course - Re-evaluation Re-evalutation: 08/29/18 22:28 Presentation of a well appearing patient complaining of acute on chronic back pain. No rapid progression of symptoms, systemic symptoms including fevers, chills, weight loss, history of recent bacterial infection, bilateral symptoms, numbness, weakness, difficulty walking, urinary retention or bowel incontinence, personal history of cancer, immunosuppression, diabetes, known AAA, or history of IV drug use. Exam is without point tenderness over vertebral bodies, pulsatile abdominal mass, and patient has symmetric and intact lower extremity strength, sensation, and reflexes without clonus. 2+ symmetric medial malleolar and dorsalis pedis pulses Based on history and physical, I have a very low suspicion of a concerning etiology of pain including epidural compression syndrome, spinal infection, transverse myelitis, malignancy, abdominal aortic aneurysm, renal colic, acute lower extremity claudication, neurogenic claudication, ankylosing spondylitis, or other intra-abdominal process. Due to absence of concerning risk factors in history and physical as well as absence of rapidly progressive, severe, or bilateral symptoms, will defer imaging at this point. Plan to manage conservatively with outpatient analgesia, analgesia, and physical therapy. - Acetaminophen 1000 q 4 + ibuprofen 800 q 6 - Continue normal daily activities as tolerated by pain - Provide with standard musculoskeletal back pain exercise instructions - Instruct to follow up with primary care provider if symptoms not improving - Provide careful return precautions and concerning symptoms to watch for. - Vital Signs Vital signs: Temp Pulse Resp BP Pulse Ox 98.9 F 91 18 138/88 H 97 08/29/18 19:59 08/29/18 19:59 08/29/18 19:59 08/29/18 19:59 08/29/18 19:59 Discharge - Discharge Clinical Impression: Lumbar back pain Condition: Stable Disposition: HOME, SELF-CARE Instructions: Warm Packs ([facility]), Low Back Pain ([facility]) Additional Instructions: You have been seen in the Emergency Department (ED) today for back pain. Your workup and exam have not shown any acute abnormalities and you are likely suffering from muscle strain or possible problems with your discs, but there is no treatment that will fix your symptoms at this time. Please take the naproxen that has been prescribed as directed. You should also purchase a local lidocaine cream such as "aspercreme with lidocaine" and use per bottle instructions to the affected area. Apply heat to the area as often as you are able. Continue to keep active and avoid prolonged periods of bed rest. Please follow up with your doctor as soon as possible regarding today's ED visit and your back pain. Return to the ED for worsening back pain, fever, weakness or numbness of either leg, or if you develop either (1) an inability to urinate or have bowel movements, or (2) loss of your ability to control your bathroom functions (if you start having "accidents"), or if you develop other new symptoms that concern you.concern you. Stretching Exercises for the Back The physician has recommended that you begin stretching exercises for your back. These are often used even while the back is painful. However, you should notify the physician if the activities seem to increase your pain. PELVIC TILT: Lie flat on your back with knees bent. Tighten your stomach and buttock muscles so it flattens your lower back against the floor. Hold 10 seconds. Repeat 10 times, twice daily. KNEE RAISE: Lying on the back with knees bent, raise one knee to your chest, then the other. Hold both knees against the chest 10 seconds, then lower one knee at a time. Repeat 10 times, twice daily. PARTIAL TRUNK RAISE: Lie face down, arms at your sides. Keeping your waist on the floor, use your arms raise your chest up. Support yourself on your elbows for 30 seconds. Repeat twice daily, increasing the time to two minutes as you recover. Prescriptions: Cyclobenzaprine HCl [Flexeril 10 mg Tablet] 10 mg PO TIDP PRN #15 tab PRN Reason: Referrals: SALENA VERA MD [Primary Care Provider] - Follow up as needed SEJAL ESCAMILLA MD [ACTIVE STAFF] - Follow up as needed
[2018-08-29 22:44] VITALS: BP 164/72
== END 2018-08-29 22:40 | disposition home or self-care (01) ==
LOC: ER 19:00
DX: G89.29 Other chronic pain (principal); M54.5 Low back pain; E66.01 Morbid (severe) obesity due to excess calories; Z68.39 Body mass index [BMI] 39.0-39.9, adult; Z90.49 Acquired absence of other specified parts of digestive tract
CPT/HCPCS: 99283; J1885

== ENCOUNTER 2018-10-11 14:39 | Emergency (ER) | payer BC ==
[2018-10-11 14:52] VITALS: BP 141/86
--- NOTE | 2018-10-11 15:23 | ER Document Report ---
HPI - HPI Patient complains to provider of: Right foot pain Time Seen by Provider: 10/11/18 14:54 Onset: This afternoon Onset/Duration: Sudden Quality of pain: Achy Severity: Moderate Pain Level: 3 Context: This 32-year-old female presents emergency department with complaints of right foot pain. Reports she was chasing her son and she had a pop in her right foot. Denies history of injury to the foot. Reports history of sprained ankle in the past. No other complaints such as fever vomiting diarrhea. Patient is wearing flip-flops no obvious deformity to her foot Associated Symptoms: None Exacerbated by: Walking Relieved by: Denies Similar symptoms previously: No Recently seen / treated by doctor: No - REPRODUCTIVE Reproductive: DENIES: : Past Medical History - General Information source: Patient - Social History Smoking Status: Unknown if Ever Smoked Cigarette use (# per day): No Frequency of alcohol use: None Drug Abuse: None Lives with: Family Family History: Reviewed & Not Pertinent, Other - abdominal and intracranial an eurysms. Patient has suicidal ideation: No Patient has homicidal ideation: No Neurological Medical History: Reports: Hx Migraine, Hx Seizures - Pseudoseizures Renal/ Medical History: Denies: Hx Peritoneal Dialysis Psychiatric Medical History: Reports: Hx Depression Past Surgical History: Reports: Hx Cholecystectomy, Hx Oral Surgery, Hx Tonsillectomy - Immunizations Immunizations up to date: Yes Hx Diphtheria, Pertussis, Tetanus Vaccination: Yes Vertical Provider Document - CONSTITUTIONAL Agree With Documented VS: Yes Exam Limitations: No Limitations General Appearance: WD/WN, No Apparent Distress - INFECTION CONTROL TRAVEL OUTSIDE OF THE [place] IN LAST 30 DAYS: No - HEENT HEENT: Atraumatic, Normocephalic - NECK Neck: Supple - RESPIRATORY Respiratory: No Respiratory Distress - CARDIOVASCULAR Cardiovascular: Regular Rate - MUSCULOSKELETAL/EXTREMETIES Musculoskeletal/Extremeties: MAEW, FROM, Tender - Reports right foot dorsally tender to palpate no obvious deformity no swelling no erythema good pedal pulse good cap refill ambulates without problems - NEURO Level of Consciousness: Awake, Alert, Appropriate Motor/Sensory: No Motor Deficit - DERM Integumentary: Warm, Dry Adult Front & Back Diagram: 1 - She reported area tender walking nontender to palpation Course - Re-evaluation Re-evalutation: 10/11/18 15:34 This 32-year-old female presents emergency department with right foot pain after she was chasing her son and felt a pop. Patient is ambulating with problems. No obvious deformity to the foot. No pain upon palpation of the foot. Patient was instructed on rest ice Tylenol Motrin for the pain she verbalized understanding to all instructions. Dictation of this chart was performed using voice recognition software; the refore, there may be some unintended grammatical errors. - Vital Signs Vital signs: Temp Pulse Resp BP Pulse Ox 98.2 F 98 18 141/86 H 97 10/11/18 14:48 10/11/18 14:48 10/11/18 14:48 10/11/18 14:48 10/11/18 14:48 Discharge - Discharge Clinical Impression: Right foot pain Condition: Stable Disposition: HOME, SELF-CARE Instructions: Use of Aetx-Lih-Wznuqvk Ibuprofen ([facility]), Ice & Elevation ([facility]) Additional Instructions: *You have been evaluated for right foot pain *Rest/Ice/Elevate your foot *Follow up with orthopedics within one week for continued pain *Take motrin as indicated for pain *Return to ED for worsening condition, changes, needs Forms: Elevated Blood Pressure Referrals: SALENA VERA MD [Primary Care Provider] - Follow up in 1 week
== END 2018-10-11 15:42 | disposition home or self-care (01) ==
LOC: ER 14:39
DX: M79.671 Pain in right foot (principal); X58.XXXA Exposure to other specified factors, initial encounter
CPT/HCPCS: 99283

== ENCOUNTER 2018-12-03 10:16 | Emergency (ER) | payer BC ==
[2018-12-03 10:27] VITALS: BP 136/82
[2018-12-03] MEDS ORDERED: KETOROLAC TROMETHAMINE 60 MG/2 ML SDV IM ONE (10:37)
[2018-12-03] MEDS ORDERED: DEXAMETHASONE SOD PHOS INJ 10 MG/1 ML VIAL IM ONE (10:37)
--- NOTE | 2018-12-03 10:39 | ER Document Report ---
ED Medical Screen (RME) - General Chief Complaint: Back Pain Stated Complaint: LOWER BACK,LEFT HIP PAIN Time Seen by Provider: 12/03/18 10:35 Primary Care Provider: SALENA VERA MD [Primary Care Provider] - Follow up as needed TRAVEL OUTSIDE OF THE [place] IN LAST 30 DAYS: No - HPI Notes: 12/03/18 10:37 Patient is a 33-year-old female with a history of hypoglycemia who presents complaining of a level back pain that will radiate down the left lateral leg status post incident 2 hours ago. Patient states that she was trying to push her son's power wheel vehicle out of her way when she felt the pain to her left lower back which now is radiating down that left lower extremity. Denies any headache, fever, URI, sore throat, chest pain, palpitations, syncope, cough, shortness of breath, wheeze, dyspnea, abdominal pain, nausea/vomiting/diarrhea, urinary retention, dysuria, hematuria, loss of control of bowel or bladder, numbness/tingling, saddle anesthesia, muscle paralysis/weakness, or rash. I have treated and performed a rapid initial assessment of this patient. A comprehensive ED assessment and evaluation of the patient, analysis of test results and completion of medical decision making process will be conducted by additional ED providers. PHYSICAL EXAMINATION: GENERAL: Well-appearing, well-nourished and in no acute distress. A&Ox4. Answers questions appropriately. - Related Data Allergies/Adverse Reactions: astemizole [From Hismanal] Allergy (Verified 10/11/18 14:50) chlorpheniramine [From Naldecon] Allergy (Verified 10/11/18 14:50) phenylephrine HCl [From Naldecon] Allergy (Verified 10/11/18 14:50) phenylpropanolamine HCl [From Naldecon] Allergy (Verified 10/11/18 14:50) phenyltoloxamine [From Naldecon] Allergy (Verified 10/11/18 14:50) Past Medical History - Social History Chew tobacco use (# tins/day): No Frequency of alcohol use: Occasional Drug Abuse: None Neurological Medical History: Reports: Hx Migraine, Hx Seizures - Pseudoseizures Renal/ Medical History: Denies: Hx Peritoneal Dialysis Psychiatric Medical History: Reports: Hx Depression Past Surgical History: Reports: Hx Cholecystectomy, Hx Oral Surgery, Hx Tonsillectomy - Immunizations Immunizations up to date: Yes Hx Diphtheria, Pertussis, Tetanus Vaccination: Yes Physical Exam - Vital signs Vitals: Temp Pulse Resp BP Pulse Ox 97.8 F 77 18 136/82 H 99 12/03/18 10:23 12/03/18 10:23 12/03/18 10:12/03/18 10:12/03/18 10:23 Course - Vital Signs Vital signs: Temp Pulse Resp BP Pulse Ox 97.8 F 77 18 136/82 H 99 12/03/18 10:23 12/03/18 10:23 12/03/18 10:23 12/03/18 10:23 12/03/18 10:23 Doctor's Discharge - Discharge Referrals: SALENA VERA MD [Primary Care Provider] - Follow up as needed
[2018-12-03] MEDS ORDERED: HYDROCODONE/ACETAMINOPHEN 5-325 MG TABLET PO ONE (11:09)
--- NOTE | 2018-12-03 11:12 | ER Document Report ---
HPI - HPI Patient complains to provider of: Left lower back pain Time Seen by Provider: 12/03/18 10:35 Onset: Other - 2 hours ago Onset/Duration: Persistent Quality of pain: Sharp Pain Level: 4 Context: Patient states she was pushing her son's power wheel and had a sudden onset of left lower back pain. Patient states pain radiates down the left lower extremity. Patient does have a history of sciatica in the past and states the only difference with today's presentation is that her pain is more severe today. Patient without any urinary retention or incontinence symptoms. Associated Symptoms: Other - Low back pain Exacerbated by: Movement, Walking Relieved by: Denies Similar symptoms previously: Yes Recently seen / treated by doctor: No - ROS ROS below otherwise negative: Yes Systems Reviewed and Negative: Yes All other systems reviewed and negative - CONSTITUTIONAL Constitutional: DENIES: Fever, Chills - NEURO Neurology: DENIES: Weakness - GASTROINTESTINAL Gastrointestinal: DENIES: Nausea - REPRODUCTIVE Reproductive: DENIES: : - MUSCULOSKELETAL Musculoskeletal: REPORTS: Extremity pain - Left lower extremity, Back Pain - DERM Skin Color: Normal Skin Problems: None Past Medical History - General Information source: Patient - Social History Smoking Status: Never Smoker Chew tobacco use (# tins/day): No Frequency of alcohol use: Occasional Drug Abuse: None Occupation: None Lives with: Family Family History: Reviewed & Not Pertinent, Other - abdominal and intracranial aneurysms. Patient has suicidal ideation: No Patient has homicidal ideation: No Neurological Medical History: Reports: Hx Migraine, Hx Seizures - Pseudoseizures Renal/ Medical History: Denies: Hx Peritoneal Dialysis Musculoskeletal Medical History: Reports Hx Arthritis - Back pain, sciatica Psychiatric Medical History: Reports: Hx Depression Past Surgical History: Reports: Hx Cholecystectomy, Hx Oral Surgery, Hx Tonsillectomy - Immunizations Immunizations up to date: Yes Hx Diphtheria, Pertussis, Tetanus Vaccination: Yes Vertical Provider Document - CONSTITUTIONAL Agree With Documented VS: Yes Exam Limitations: No Limitations General Appearance: WD/WN, No Apparent Distress Notes: PHYSICAL EXAMINATION: GENERAL: Well-appearing, morbidly obese and in no acute distress. HEAD: Atraumatic, normocephalic. EYES: sclera clear, anicteric, conjunctiva are normal. ENT: nares patent, Moist mucous membranes. NECK: Normal range of motion, supple LUNGS: respirations unlabored HEART: Regular rate and rhythm without murmurs EXTREMITIES: Normal range of motion, no pitting or edema. No cyanosis. Gait normal, pt ambulates without difficulty BACK: Left lower lumbar paraspinal tenderness, left SI joint tenderness, no midline tenderness, no deformities or step-offs. No CVA tenderness. NEUROLOGICAL: Cranial nerves grossly intact. Normal speech, normal gait. No saddle anesthesia. PSYCH: Normal mood, normal affect. SKIN: Warm, Dry, normal turgor, no rashes or lesions noted. - INFECTION CONTROL TRAVEL OUTSIDE OF THE [place] IN LAST 30 DAYS: No Course - Re-evaluation Re-evalutation: The patient presents with low back pain without signs of spinal cord compressi on, cauda equina syndrome, infection, aneurysm, or other serious etiology. The patient is neurologically intact. Given the extremely risk of these diagnoses further testing and evaluation for these possibilities does not appear to be indicated at this time. Patient has been instructed to return if the symptoms worsen or change in any way. 12/03/18 11:20 Patient informed the nurse that she wanted to see a real doctor as patient feels that she needs x-ray imaging. Consulted with Dr. Marks regarding patient's concern as well as history and exam findings. Dr. Marks agrees with diagnostic evaluation and discharge plan of care at this time and does not feel that patient warrants additional evaluation by a different medical provider at this time. helmet hat brim cutter Sandi advised of patient's concern as well as presentation and exam findings. Charge nurse to bedside to speak with patient. - Vital Signs Vital signs: Temp Pulse Resp BP Pulse Ox 97.8 F 77 18 136/82 H 99 12/03/18 10:23 12/03/18 10:23 12/03/18 10:23 12/03/18 10:23 12/03/18 10:23 Discharge - Discharge Clinical Impression: Sciatica of left side Condition: Stable Disposition: HOME, SELF-CARE Instructions: Ice Packs ([facility]), Low Back Pain ([facility]), Sciatica ([facility]) Additional Instructions: Return immediately for any new or worsening symptoms Followup with your primary care provider, call tomorrow to make a followup appointment No heavy lifting Prescriptions: Naproxen [Naprosyn 250 Nmg Tablet] 1 tab PO BID #14 tablet Methocarbamol [Robaxin 500 Mg Tablet] 500 mg PO QID PRN #20 tablet PRN Reason: Forms: Return to Work Referrals: SALENA VERA MD [Primary Care Provider] - Follow up as needed
== END 2018-12-03 11:37 | disposition home or self-care (01) ==
LOC: ER 10:16
DX: M54.32 Sciatica, left side (principal); M79.605 Pain in left leg; E66.01 Morbid (severe) obesity due to excess calories; Z90.49 Acquired absence of other specified parts of digestive tract
CPT/HCPCS: 99283; 96372; J1885; J1100

== ENCOUNTER 2019-05-03 12:56 | Emergency (ER) | payer BC ==
--- NOTE | 2019-05-03 13:52 | ER Document Report ---
ED Medical Screen (RME) - General Chief Complaint: Headache Stated Complaint: HEADACHE Time Seen by Provider: 05/03/19 13:43 Primary Care Provider: SALENA VERA MD [Primary Care Provider] - Follow up as needed Notes: HPI: 33-year-old female presenting to the emergency department by EMS for evaluation of left-sided headache with left arm and finger tingling no chest pain no shortness of breath no fever. Patient states that over the last 3 years since giving she tends to get a headache that she considers to be migraine type around the time of her menstrual cycle. She felt this was sharper and atypical for her migraines. Denies vomiting. Headache has currently resolved after taking Excedrin just prior to arrival to the ER. Still with some tingling in the fingertips. Patient also with history of seizures. I have greeted and performed a rapid initial assessment of this patient. A comprehensive ED assessment and evaluation of the patient, analysis of test results and completion of the medical decision making process will be conducted by additional ED providers PHYSICAL EXAMINATION: GENERAL: Well-appearing, well-nourished and in no acute distress. HEAD: Atraumatic, normocephalic. EYES: sclera anicteric, conjunctiva are normal. No nystagmus ENT: Moist mucous membranes. NECK: Normal range of motion LUNGS: Normal work of breathing, clear to auscultation HEART: 2+ radial pulses bilaterally, regular rate and rhythm ABD: limited by positioning for exam in triage. EXTREMITIES: no pitting or edema. No cyanosis. NEUROLOGICAL: No focal neurological deficits. Moves all extremities s pontaneously and on command. PSYCH: Normal mood, normal affect. SKIN: Warm, Dry, normal turgor, no rashes or lesions noted. TRAVEL OUTSIDE OF THE [place] IN LAST 30 DAYS: No - Related Data Allergies/Adverse Reactions: astemizole [From Hismanal] Allergy (Verified 12/03/18 10:43) chlorpheniramine [From Naldecon] Allergy (Verified 12/03/18 10:43) phenylephrine HCl [From Naldecon] Allergy (Verified 12/03/18 10:43) phenylpropanolamine HCl [From Naldecon] Allergy (Verified 12/03/18 10:43) phenyltoloxamine [From Naldecon] Allergy (Verified 12/03/18 10:43) anemone Allergy (Uncoded 05/03/19 13:44) Past Medical History Neurological Medical History: Reports: Hx Migraine, Hx Seizures - Pseudoseizures Renal/ Medical History: Denies: Hx Peritoneal Dialysis Musculoskeltal Medical History: Reports Hx Arthritis - Back pain, sciatica Psychiatric Medical History: Reports: Hx Depression Past Surgical History: Reports: Hx Cholecystectomy, Hx Oral Surgery, Hx Tonsillectomy - Immunizations Immunizations up to date: Yes Hx Diphtheria, Pertussis, Tetanus Vaccination: Yes Physical Exam - Vital signs Vitals: Temp Pulse Resp BP Pulse Ox 98.3 F 84 18 125/84 97 05/03/19 13:42 05/03/19 13:42 05/03/19 13:42 05/03/19 13:42 05/03/19 13:42 Course - Vital Signs Vital signs: Temp Pulse Resp BP Pulse Ox 98.3 F 84 18 125/84 97 05/03/19 13:42 05/03/19 13:42 05/03/19 13:42 05/03/19 13:42 05/03/19 13:42 Doctor's Discharge - Discharge Referrals: SALENA VERA MD [Primary Care Provider] - Follow up as needed
--- NOTE | 2019-05-03 14:50 | RADIOLOGY REPORT (SQ) ---
EXAM DESCRIPTION: CT HEAD WITHOUT COMPLETED DATE/TIME: 05/03/2019 2:36 pm REASON FOR STUDY: headache COMPARISON: 08/18/2015 TECHNIQUE: Axial images acquired through the brain without intravenous contrast. Images reviewed wi th bone, brain and subdural windows. Additional sagittal and coronal reconstructions were generated. Images stored on PACS. All CT scanners at this facility use dose modulation, iterative reconstruction, and/or weight based d osing when appropriate to reduce radiation dose to as low as reasonably achievable (ALARA). [facility]: Dose Right [facility]: CareDose [facility]: Dose Right [facility]: Teradose 4D [facility]: Forever RADIATION DOSE: CT Rad equipment meets quality standard of care and radiation dose reduction techniq ues were employed. CTDIvol: 53.2 mGy. DLP: 964 mGy-cm. mGy. LIMITATIONS: None. FINDINGS: VENTRICLES: Normal size and contour. CEREBRUM: No masses. No hemorrhage. No midline shift. No evidence for acute infarction. Normal gra y/white matter differentiation. No areas of low density in the white matter. CEREBELLUM: No masses. No hemorrhage. No alteration of density. No evidence for acute infarction. EXTRAAXIAL SPACES: No fluid collections. No masses. ORBITS AND GLOBE: No intra- or extraconal masses. Normal contour of globe without masses. CALVARIUM: No fracture. PARANASAL SINUSES: No fluid or mucosal thickening. SOFT TISSUES: No mass or hematoma. OTHER: No other significant finding. IMPRESSION: NORMAL BRAIN CT WITHOUT CONTRAST. EVIDENCE OF ACUTE STROKE: NO. COMMENT: Quality ID # [id number]: Final reports with documentation of one or more dose reduction techniques (e.g., Automated exposure control, adjustment of the mA and/or kV according to patient size, use of iterative reconstruction technique) TECHNICAL DOCUMENTATION: JOB ID: [id number] 2010 [employer]- All Rights Reserved Reading location - IP/workstation name: [email or web address]
[2019-05-03 15:37] LABS: ABSOLUTE EOSINOPHILS # (AUTO) 0.2 10^3/uL (0.0-0.6); ABSOLUTE MONOCYTES (AUTO) 0.4 10^3/uL (0.1-1.4); ABSOLUTE NEUT (AUTO) 4.5 10^3/uL (1.7-8.2); BASOPHILS % (AUTO) 0.4 % (0-2); EOSINOPHILS % (AUTO) 2.2 % (0-6); HEMATOCRIT 42.2 % (36.0-47.0); HEMOGLOBIN 15.2 g/dL (12.0-15.5); LYMPHOCYTES % (AUTO) 28.7 % (13-45); MEAN CORPUSCULAR HEMOGLOBIN 31.9 pg (27.0-33.4); MEAN CORPUSCULAR VOLUME 89 fl (80-97); MONOCYTES % (AUTO) 5.4 % (3-13); PLATELET COUNT 266 10^3/uL (150-450); RED BLOOD COUNT 4.76 10^6/uL (3.72-5.28); RED CELL DISTRIBUTION WIDTH 12.3 % (11.5-14.0); SEGMENTED NEUTROPHILS % (AUTO) 63.3 % (42-78); TOTAL CELLS COUNTED % (AUTO) 100 %; WHITE BLOOD COUNT 7.1 10^3/uL (4.0-10.5)
[2019-05-03 16:05] LABS: ALBUMIN 4.7 g/dL (3.5-5.0); ALKALINE PHOSPHATASE 79 U/L (38-126); ANION GAP 10 (5-19); ASPARTATE AMINO TRANSFERASE 27 U/L (14-36); BILIRUBIN,TOTAL 0.4 mg/dL (0.2-1.3); BLOOD UREA NITROGEN 11 mg/dL (7-20); CALCIUM 10.1 mg/dL (8.4-10.2); CARBON DIOXIDE 27 mmol/L (22-30); CHLORIDE 104 mmol/L (98-107); GLUCOSE 76 mg/dL (75-110); POTASSIUM 4.4 mmol/L (3.6-5.0); TOTAL PROTEIN 7.7 g/dL (6.3-8.2)
[2019-05-03] MEDS ORDERED: MECLIZINE HCL 25 MG TABLET PO ONE (17:20)
--- NOTE | 2019-05-03 17:36 | ER Document Report ---
ED General - General Chief Complaint: Palpitations Stated Complaint: HEADACHE Time Seen by Provider: 05/03/19 13:43 Primary Care Provider: SALENA VERA MD [Primary Care Provider] - Follow up as needed Mode of Arrival: Ambulatory Information source: Patient TRAVEL OUTSIDE OF THE [place] IN LAST 30 DAYS: No - HPI Onset: Yesterday Onset/Duration: Sudden Quality of pain: No pain Severity: Mild Associated symptoms: Headache, Other - Palpitations, numbness and tingling in left arm Exacerbated by: Movement Relieved by: Remaining still Similar symptoms previously: No - patient has had migraines before but not a headache like this one Recently seen / treated by doctor: No Notes: 33 year old female with a history of Migraine Headaches and Hypoglycemic events here for a headache, palpitations, dizziness, and left arm numbness and tingling. The patient says she woke up yesterday with a headache (left sided) which was not helped by Excedrin. The patient took another Excedrin today and her headache went away prior to ER arrival. The patient says she has had headaches in the past but this one seemed worse and was only on the left sided. The patient had palpitations for about 15 minutes yesterday and about 20 minutes today. The patient is also feeling dizzy like the room is spinning around her. She says she has had vertigo before but this feels different since with vertigo in the past she has felt off balance like she was going to fall (not like the room was spinning). - Related Data Allergies/Adverse Reactions: astemizole [From Hismanal] Allergy (Verified 12/03/18 10:43) chlorpheniramine [From Naldecon] Allergy (Verified 12/03/18 10:43) phenylephrine HCl [From Naldecon] Allergy (Verified 12/03/18 10:43) phenylpropanolamine HCl [From Naldecon] Allergy (Verified 12/03/18 10:43) phenyltoloxamine [From Naldecon] Allergy (Verified 12/03/18 10:43) anemone Allergy (Uncoded 05/03/19 13:44) Home Medications: Deidre. Broadlands's Wort. Women's multivitamin. Vitamin D3 Past Medical History - General Information source: Patient - Social History Smoking Status: Never Smoker Frequency of alcohol use: None Drug Abuse: None Lives with: Family Family History: Reviewed & Not Pertinent, Other - abdominal and intracranial aneurysms. Patient has suicidal ideation: No Patient has homicidal ideation: No Neurological Medical History: Reports: Hx Migraine, Hx Seizures - Pseudoseizures Renal/ Medical History: Denies: Hx Peritoneal Dialysis Musculoskeletal Medical History: Reports Hx Arthritis - Back pain, sciatica Psychiatric Medical History: Reports: Hx Depression Past Surgical History: Reports: Hx Cholecystectomy, Hx Oral Surgery, Hx Tonsillectomy - Immunizations Immunizations up to date: Yes Hx Diphtheria, Pertussis, Tetanus Vaccination: Yes Review of Systems - Review of Systems Constitutional: No symptoms reported EENT: No symptoms reported Cardiovascular: Palpitations, Dizziness Respiratory: No symptoms reported Gastrointestinal: No symptoms reported Genitourinary: No symptoms reported Female Genitourinary: No symptoms reported Musculoskeletal: No symptoms reported Skin: No symptoms reported Hematologic/Lymphatic: No symptoms reported Neurological/Psychological: Headaches, Numbness - of left arm, Tingling - of left arm -: Yes All other systems reviewed and negative Physical Exam - Vital signs Vitals: Temp Pulse Resp BP Pulse Ox 98.3 F 84 18 125/84 97 05/03/19 13:42 05/03/19 13:42 05/03/19 13:42 05/03/19 13:42 05/03/19 13:42 - Notes Notes: GENERAL: Well-appearing, well-nourished and in no acute distress. HEAD: Atraumatic, normocephalic. EYES: Pupils equal round and reactive to light, extraocular movements intact, sclera anicteric, conjunctiva are normal. ENT: TMs normal, nares patent, oropharynx clear without exudates. Moist mucous membranes. NECK: Normal range of motion, supple without lymphadenopathy or JVD. LUNGS: Breath sounds clear to auscultation bilaterally and equal. No wheezes rales or rhonchi. HEART: Regular rate and rhythm without murmurs, rubs or gallops. ABDOMEN: Soft, nontender, normoactive bowel sounds. No guarding, no rebound. No masses appreciated. EXTREMITIES: Normal range of motion, no pitting or edema. No clubbing or cyanosis. NEUROLOGICAL: Cranial nerves II through XII grossly intact. Normal speech, normal gait. PSYCH: Normal mood, normal affect. SKIN: Warm, Dry, normal turgor, no rashes or lesions noted. Course - Re-evaluation Re-evalutation: 05/03/19 18:26 The patient is here for what sounds like 3 separate issues (left sided headache which lasted 2 days but is now gone), palpitations, and dizziness like the room is spinning. The patient had a CT of her head which showed no acute process ordered after her MSE exam. The patient is not having signs of a SAH so no need for an LP. Patient has had 2 episodes of palpitations. Her electrolytes are unremarkable and her TSH is normal. Patient told to follow up with her PCP for this and to consider an outpatient Holter monitor if these continue. Patient has dizziness which is reproducible with head movements and she has mild horizontal nystamus. Mild vertigo seems likely so will treat with Meclizine. - Vital Signs Vital signs: Temp Pulse Resp BP Pulse Ox 98.3 F 84 18 125/84 97 05/03/19 13:42 05/03/19 13:42 05/03/19 13:42 05/03/19 13:42 05/03/19 13:42 - Laboratory Result Diagrams: 05/03/19 14:50 05/03/19 14:50 Laboratory results interpreted by me: 05/03/19 14:50 Magnesium 2.6 H - Diagnostic Test Radiology reviewed: Image reviewed, Reports reviewed - EKG Interpretation by Ms EKG shows normal: Sinus rhythm, [place], Intervals, QRS Complexes Rate: Normal Additional EKG results interpreted by me: 05/03/19 18:04 isolated T wave inversion III Discharge - Discharge Clinical Impression: Palpitations Headache Qualifiers: Headache type: unspecified Headache chronicity pattern: acute headache Intractability: not intractable Qualified Code(s): R51 - Headache Disposition: HOME, SELF-CARE Instructions: Palpitations (Irregular or Rapid Heartrate) ([facility]), Headache ([facility]), Vertigo ([facility]) Additional Instructions: Use Meclizine as needed for dizziness. Follow up with your primary care doctor and tell him/her about your ER visit for a headache, palpitations, and dizziness. If you continue to have episodes of palpitations you may need to be set up with an outpatient night monitor. Prescriptions: Meclizine HCl [Antivert 25 mg Tablet] 25 mg PO TID PRN #21 tablet PRN Reason: Referrals: SALENA VERA MD [Primary Care Provider] - Follow up as needed
[2019-05-03 18:29] LABS: APPEARANCE,URINE CLEAR; BILIRUBIN,URINE NEGATIVE (NEGATIVE); COLOR,URINE YELLOW; GLUCOSE, URINE NEGATIVE (NEGATIVE); KETONES,URINE NEGATIVE (NEGATIVE); LEUKOCYTE ESTERASE,URINE NEGATIVE (NEGATIVE); NITRITE,URINE NEGATIVE (NEGATIVE); PROTEIN,URINE NEGATIVE (NEGATIVE); URINE SPECIFIC GRAVITY 1.016; UROBILINOGEN,URINE NEGATIVE mg/dL (<2.0)
[2019-05-03 19:24] VITALS: BP 134/79
--- NOTE | 2019-05-04 01:11 | EKG REPORT ---
SEVERITY:- NORMAL ECG - SINUS RHYTHM : Confirmed by: Enedina Worley MD 04-May-2019 01:10:31
== END 2019-05-03 17:10 | disposition home or self-care (01) ==
LOC: ER 12:56
DX: R00.2 Palpitations (principal); R51 Headache; R20.0 Anesthesia of skin; R42 Dizziness and giddiness; Z90.49 Acquired absence of other specified parts of digestive tract
CPT/HCPCS: 36415; 70450; 80053; 81001; 83735; 84443; 84703; 85025; 93005; 93010; 99285